=== PATIENT | female | born 1955 | race Caucasian/White ===

== ENCOUNTER → 2019-12-20 13:56 | Outpatient (REF) | payer OTHER, SELFPAY ==
--- NOTE | 2019-12-20 14:00 | HM_ITS ---
TEST PERFORMED: Cardiac event monitoring. REQUESTING PHYSICIAN: Dr. Cruz. INDICATIONS: Palpitations. ENROLLMENT PERIOD: 12/20/2019 to 01/19/2020 - 30 days. FINDINGS: In the above monitoring period of 30 days, the underlying rhythm was sinus. Average heart rate was 61 beats per minute. There were no significant cardiac arrhythmias recorded during these days. CONCLUSION: Overall, unremarkable 30-day event monitoring showing sinus rhythm only without any cardiac arrhythmias. Tashi Jones MD HS/MODBrie / [id number]
== END ==
LOC: HO.CARD 13:56
PROVIDERS: PCP Internal Medicine; Visit Provider Internal Medicine Cardiovascular Disease
DX: R00.2 Palpitations (principal)
CPT/HCPCS: 93270

== ENCOUNTER 2020-11-07 11:34 | Outpatient (REF) | payer OTHER, SELFPAY ==
--- NOTE | ~2020-11-07 | MM_ITS ---
EXAMINATION: MM SCREENING DIGITAL BREAST TOMOSYNTHESIS, BILATERAL CLINICAL INFORMATION: Screening. Asymptomatic. The lifetime risk of breast cancer based on the Tyrer-Cuzick Model is 4%. COMPARISON: Mammography: 09/15/2019, 09/09/2018, 09/04/2017 TECHNIQUE: Digital breast tomosynthesis is performed in both the craniocaudal and mediolateral oblique views along with computer-aided detection (CAD). Synthesized 2D images are generated from the tomosynthesis. FINDINGS: There are scattered areas of fibroglandular density (ACR BI-RADS breast composition Category b). There is fibronodular parenchymal pattern with scattered small waxing and waning smooth nodularity as noted previously. There is no architectural abnormality or interval suspicious changes. Again, there are scattered bilateral punctate round calcifications in either breast. The axilla and skin contours are unremarkable. MM/MM tomosynthesis screening BI IMPRESSION: No significant changes from prior studies. ASSESSMENT: BI-RADS 2: Benign RECOMMENDATION: Routine annual mammography screening. This patient's information was entered into a reminder system with a target due date for their next mammogram.
== END 2020-11-07 11:35 | disposition home or self-care (01) ==
LOC: HO.MAMMO 11:34
PROVIDERS: PCP Internal Medicine; Visit Provider Internal Medicine
DX: Z12.31 Encounter for screening mammogram for malignant neoplasm of breast (principal)
CPT/HCPCS: 77063; 77067

== ENCOUNTER 2020-11-23 07:46 | Outpatient (REF) | payer OTHER, SELFPAY ==
--- NOTE | ~2020-11-23 | US_ITS ---
EXAMINATION: US ABDOMEN COMPLETE CLINICAL INFORMATION: Right upper quadrant pain. COMPARISON: CT abdomen and pelvis 10/16/2019. Ultrasound abdomen 08/01/2010. TECHNIQUE: Real-time imaging of the abdominal viscera. FINDINGS: PANCREAS: Not well visualized due to bowel gas ABDOMINAL AORTA: The proximal, mid, and distal segments are normal in caliber. INFERIOR VENA CAVA: Visualized portions are normal. LIVER: Liver echotexture is increased probably representing fatty infiltration. There are hypoechoic areas adjacent to the gallbladder, a characteristic location of focal fatty sparing. No other focal liver lesion is seen. There is no biliary duct dilatation. GALLBLADDER: The gallbladder is physiologically distended without evidence of stones, sludge, polyps, wall thickening or pericholecystic fluid. COMMON BILE DUCT: Normal in caliber measuring 0.5 cm in diameter. RIGHT KIDNEY: Normal. No hydronephrosis. No renal calculi or focal parenchymal lesions. The kidney measures 9.7 cm in maximum dimension. LEFT KIDNEY: Normal. No hydronephrosis. No renal calculi or focal parenchymal lesions. The kidney measures 10.6 cm in maximum dimension. SPLEEN: Normal. The spleen measures 10.7 cm in maximum dimension. FREE FLUID: None. US/US abdomen complete IMPRESSION: Echogenic liver suggestive of fatty infiltration. Normal-appearing gallbladder. Nonvisualization of the pancreas.
== END 2020-11-23 07:47 | disposition home or self-care (01) ==
LOC: HO.US 07:46
PROVIDERS: PCP Internal Medicine; Visit Provider Internal Medicine
DX: R10.11 Right upper quadrant pain (principal)
CPT/HCPCS: 76700

== ENCOUNTER 2021-03-27 10:44 | Outpatient (REF) | payer OTHER, SELFPAY ==
[2021-03-27 13:17] LABS: Binax Now Covid-19 Ag Negative (Negative)
[2021-03-27 13:18] LABS: Binax Internal Control QC Valid
== END 2021-03-27 10:45 | disposition home or self-care (01) ==
LOC: HO.LAB 10:44
PROVIDERS: Visit Provider Internal Medicine
DX: Z20.822 Contact with and (suspected) exposure to COVID-19 (principal)
CPT/HCPCS: C9803

== ENCOUNTER 2021-05-15 06:43 | Outpatient (REF) | payer OTHER, SELFPAY ==
[2021-05-15 07:55] LABS: Alanine Aminotransferase 20 U/L (0-31); Albumin Level 4.2 g/dL (3.5-5.0); Alkaline Phosphatase 91 U/L (39-117); Anion Gap 13 (12-20); Aspartate Amino Transferase 19 U/L (5-31); Bilirubin Direct 0.2 mg/dL (0.0-0.5); Bilirubin Total 0.3 mg/dL (0.0-1.0); Blood Urea Nitrogen 21 mg/dL (9-16); Calcium 9.4 mg/dL (8.4-10.2); Carbon Dioxide 27 mmol/L (22-29); Chloride 106 mmol/L (96-108); Cholesterol 197 mg/dL; Estimated Glomerular Filt Rate 59; Glucose Random 94 mg/dL (60-115); HDL Cholesterol 48 mg/dL; LDL Cholesterol Calculated 118 mg/dl; Potassium 4.2 mmol/L (3.3-5.1); Sodium 142 mmol/L (135-145); Total Protein 7.6 g/dL (6.5-8.0); Triglycerides 157 mg/dL
== END 2021-05-15 06:44 | disposition home or self-care (01) ==
LOC: HO.LAB 06:43
PROVIDERS: Absent Provider Internal Medicine; PCP Internal Medicine; Visit Provider Student in an Organized Health Care Education/Training Program
DX: I10 Essential (primary) hypertension (principal); R73.01 Impaired fasting glucose
CPT/HCPCS: 36415; 80048; 80061; 80076

== ENCOUNTER 2021-06-13 07:12 | Outpatient (REF) | payer OTHER, SELFPAY ==
[2021-06-13 08:28] LABS: Estimated Average Glucose 128 mg/dL; Hemoglobin A1C 157.4021 umol/L; Hemoglobin A1c % 6.1 %
[2021-06-13 08:36] LABS: Anion Gap 12 (12-20); Blood Urea Nitrogen 13 mg/dL (9-16); Calcium 9.7 mg/dL (8.4-10.2); Carbon Dioxide 29 mmol/L (22-29); Chloride 105 mmol/L (96-108); Estimated Glomerular Filt Rate 56; Glucose Random 103 mg/dL (60-115); Potassium 4.3 mmol/L (3.3-5.1); Sodium 142 mmol/L (135-145)
== END 2021-06-13 07:13 | disposition home or self-care (01) ==
LOC: HO.LAB 07:12
PROVIDERS: PCP Internal Medicine; Visit Provider Internal Medicine
DX: I10 Essential (primary) hypertension (principal); R73.01 Impaired fasting glucose
CPT/HCPCS: 36415; 80048; 83036

== ENCOUNTER 2021-11-09 10:23 | Outpatient (REF) | payer OTHER, SELFPAY ==
--- NOTE | ~2021-11-09 | MM_ITS ---
EXAMINATION: MM SCREENING DIGITAL BREAST TOMOSYNTHESIS, BILATERAL CLINICAL INFORMATION: Screening. Asymptomatic. The lifetime risk of breast cancer based on the Tyrer-Cuzick Model is 4%. COMPARISON: Mammography: 11/07/2020, 09/15/2019, 09/09/2018 TECHNIQUE: Digital breast tomosynthesis is performed in both the craniocaudal and mediolateral oblique views along with computer-aided detection (CAD). Synthesized 2D images are generated from the tomosynthesis. FINDINGS: There are scattered areas of fibroglandular density (ACR BI-RADS breast composition Category b). Parenchymal pattern is similar to prior studies and there is no developing density or interval mass or architectural abnormality. Again, numerous scattered bilateral punctate round calcified breast in both breasts. The axilla and skin contours are unremarkable. There are no significant changes. MM/MM tomosynthesis screening BI IMPRESSION: No mammographic evidence of malignancy. ASSESSMENT: BI-RADS 2: Benign RECOMMENDATION: Routine annual mammography screening. This patient's information was entered into a reminder system with a target due date for their next mammogram.
== END 2021-11-09 10:24 | disposition home or self-care (01) ==
LOC: HO.MAMMO 10:23
PROVIDERS: PCP Internal Medicine; Visit Provider Internal Medicine
DX: Z12.31 Encounter for screening mammogram for malignant neoplasm of breast (principal)
CPT/HCPCS: 77063; 77067

== ENCOUNTER → 2022-05-29 13:40 | Outpatient (BNVA) | payer OTHER, SELFPAY | PROVIDERS: PCP Internal Medicine; Visit Provider Internal Medicine | DX: Z12.11 Encounter for screening for malignant neoplasm of colon (principal); Z12.12 Encounter for screening for malignant neoplasm of rectum | CPT/HCPCS: 99202 ==

== ENCOUNTER 2022-08-01 06:36 | Day surgery (SDC) | payer OTHER, SELFPAY ==
--- NOTE | 2022-07-31 09:51 | HO.ANESPROP2 ---
Documented by User: Pauline Kamara NP 07/31/22 09:51 HPI - Anesthesia Eval Consult details Narrative: 66yo F for Colonoscopy PMFSH Active Problems Active Problems: All Active Problems (Updated 07/30/22 @ 10:14 by Mindy Calderon RN) Encounter for colorectal cancer screening (Acute) Past Medical History Medical History (Updated 07/30/22 @ 10:14 by Mindy Calderon RN) GERD (gastroesophageal reflux disease) Family History Family History Father No problems noted. Mother No problems noted. Surgical History Surgical History (Updated 07/30/22 @ 10:11 by Mindy Calderon RN) History of esophagogastroduodenoscopy (EGD) History of tubal ligation Hx of colonoscopy Hx of excision of mass Social History Social History Patient Tobacco Use Status: Never used Tobacco Use of substances other than those prescribed or required for medical reasons: No Advance Directives: No Advance Directives Information Provided: Yes Meds Allergies Allergy/AdvReac Type Severity Reaction Status Date / Time Sulfa (Sulfonamide Allergy Severe THROAT Unverified 07/30/22 10:12 Antibiotics) CLOSES [SULFA(SULFONAMIDE ANTIBIOTICS)] vancomycin [VANCOMYCIN] Allergy Severe FLUSH, Unverified 05/29/22 13:51 REDNESS, ITCHING Home Medications Medication Instructions Recorded Confirmed Last Taken Type famotidine 20 mg tablet 20 mg PO DAILY 05/29/22 07/30/22 Unknown History Exam Exam Date and Time: July 31, 2022 0951 Assessment and Plan Assessment Anesthesia Assessment: Chart Reviewed Documented by User: Carmelo Asif MD 08/01/22 08:28 PMFSH Past Medical History Medical History (Updated 07/30/22 @ 10:14 by Mindy Calderon RN) GERD (gastroesophageal reflux disease) Family History Family History Father No problems noted. Mother No problems noted. Family history of problems with anesthesia: No Surgical History Surgical History (Updated 07/30/22 @ 10:11 by Mindy Calderon RN) History of esophagogastroduodenoscopy (EGD) History of tubal ligation Hx of colonoscopy Hx of excision of mass History of Problems with Anesthesia: No Social History Social History Patient Tobacco Use Status: Never used Tobacco Use of substances other than those prescribed or required for medical reasons: No Advance Directives: No Advance Directives Information Provided: Yes Meds Allergies Allergy/AdvReac Type Severity Reaction Status Date / Time Sulfa (Sulfonamide Allergy Severe THROAT Unverified 07/30/22 10:12 Antibiotics) CLOSES [SULFA(SULFONAMIDE ANTIBIOTICS)] vancomycin [VANCOMYCIN] Allergy Severe FLUSH, Unverified 05/29/22 13:51 REDNESS, ITCHING Home Medications Medication Instructions Recorded Confirmed Last Taken Type famotidine 20 mg tablet 20 mg PO DAILY 05/29/22 07/30/22 Unknown History Exam Airway Mallampati Class: II TM Dist: <=3cm Partial: Upper and Lower Loose/Missing/Broken Teeth: Yes Heart: ok Lungs: ok Assessment and Plan Assessment Anesthesia Assessment: Anesthesia Plan Discussed Final Anesthetic Review Family History of Problems with Anesthesia: No History of Problems with Anesthesia: No NPO: Yes ASA Class: II Final Preanesthetic Review: No Changes in Pt Med Stat, Meds/Allgs Chart Reviewed, Consent Obtained/Reviewed and Anes Risks/Benef Reviewed Patient Risk: Low Procedure Risk: Low Anesthetic Plan Anesthetic Plan: MAC: and Agree w/ Assess. and Plan Disposition: Standard PACU
[2022-08-01 07:11] VITALS: BP 135/58; PULSE 60; RESP 16; TEMP 36.2; O2SAT 98; BMI 28.3
--- NOTE | 2022-08-01 08:20 | MHC.SHP ---
Pre-Procedural Eval Section A Date of Service: 08/01/22 The patient is an INPATIENT: No The History & Physical has been completed within 30 days and I have reviewed it.: No Section B Chief Complaint: Screening Relevant Family History (Specify if Yes): No Present Medications: see Short Stay Collaborative assessment Medical History: Significant History (GERD) History of Previous Operations: Relevant previous surgery/procedure and date(s) (History of tubal ligation Hx of colonoscopy, hx of EGD) Allergies: Allergies Allergy/AdvReac Type Severity Reaction Status Date / Time Sulfa (Sulfonamide Allergy Severe THROAT Unverified 07/30/22 10:12 Antibiotics) CLOSES [SULFA(SULFONAMIDE ANTIBIOTICS)] vancomycin [VANCOMYCIN] Allergy Severe FLUSH, Unverified 05/29/22 13:51 REDNESS, ITCHING Review of Systems Sugical H&P ROS: Negative: Constitution, Cardiovascular, Respiratory and Gastrointestinal Exam Surgical H&P Exam: Normal: Heart, Normal: Lungs, Normal: Extremities and Normal: Abdomen Plan Diagnosis/Plan: Unchanged I have reviewed the history and physical and performed a pertinent physical examination on my patient. No changes have occurred unless specified. Time Spent With Patient Time: Total time managing care of this patient today ____ minutes.
--- NOTE | 2022-08-01 08:30 | W.PM.OPN ---
Operative Note Operative Note Date of Service: 08/01/22 Narrative: COLONOSCOPY TILL CECUM WITH SUBMUCOSAL INJECTION AND SNARE POLYPECTOMY Pre-op diagnosis: Colon cancer screening Post-op diagnosis:? Colon polyp, diverticulosis Endoscopist:? Trinity Dowling MD Anesthesia:?MAC Consent: Indications for the procedure and potential complications of bleeding, perforation, reaction to medications and missed diagnosis were discussed with the patient and informed consent was obtained. Instrument: Olympus PCF H 190 L variable stiffness pediatric colonoscope Monitoring: Vital signs and clinical assessment, intermittent blood pressure monitoring, continuous EKG monitoring, Pulse oximetry and Carbon Dioxide monitoring were done throughout the procedure. Please see anesthesia flowsheet. Colon withdrawl time was 23 minutes. Procedure: The patient was placed in the left lateral decubitis position and pre-procedure medications were administered. After a digital rectal examination of the ano-rectum, the video colonoscope was inserted into the rectum and advanced through the colon to the cecum. The colonoscope was slowly withdrawn in a retrograde panoramic fashion and the colon mucosa was carefully examined including a retroflexed view of the rectum. Findings and interventions are described below. Procedure Difficulty: Without difficulty Findings: Terminal Ileum: Not evaluated Cecum: Normal Ascending Colon: A 12 - 15 mm sessile polyp in the proximal AC. Polyp was raised with 2 cc of [place] and removed with a hot snare. Scattered moderate diverticulosis throughout the colon. Transverse Colon: Scattered moderate diverticulosis throughout the colon. Descending Colon: Scattered moderate diverticulosis throughout the colon. Sigmoid Colon: Scattered moderate diverticulosis throughout the colon. Rectum: Normal Ano-rectum: Perianal skin tags Colon preparation: Good after some irrigation Impression and Post Procedure Diagnosis: Colonoscopy Findings: One medium sized polyp removed Moderate diverticulosis seen in the entire colon Plan: Await pathology results Patient has an appointment on 08/14/22 in the [facility] with Dr Riojas. Repeat Colonoscopy interval based on path results - in 3 years if polyp is adenomatous and 10 years if polyps are hyperplastic. Above findings were reviewed with the patient and colon polyps and diverticulosis handouts were given in the discharge area
[2022-08-01 09:10] VITALS: BP 94/42; PULSE 60; RESP 16; TEMP 36.4; O2SAT 93
[2022-08-01 09:25] VITALS: BP 105/49; PULSE 54; RESP 16; TEMP 36.4; O2SAT 96
== END 2022-08-01 09:45 | disposition home or self-care (01) ==
PROVIDERS: PCP Internal Medicine; Visit Provider Internal Medicine Gastroenterology
PROC: 0DJD8ZZ Inspection of Lower Intestinal Tract, Via Natural or Artificial Opening Endoscopic (ICD-10-PCS; CPT 45378; principal; 2022-08-01 08:50)
DX: Z12.11 Encounter for screening for malignant neoplasm of colon (principal); D12.2 Benign neoplasm of ascending colon; K57.30 Diverticulosis of large intestine without perforation or abscess without bleeding; K64.4 Residual hemorrhoidal skin tags; K21.9 Gastro-esophageal reflux disease without esophagitis; Z79.899 Other long term (current) drug therapy; Z88.1 Allergy status to other antibiotic agents; Z88.2 Allergy status to sulfonamides
CPT/HCPCS: 45385; 45381; 88305; J3010

== ENCOUNTER → 2022-08-14 13:23 | Outpatient (BNVA) | payer OTHER, SELFPAY | PROVIDERS: PCP Internal Medicine; Visit Provider Internal Medicine | DX: D12.2 Benign neoplasm of ascending colon (principal); K57.30 Diverticulosis of large intestine without perforation or abscess without bleeding; Z98.890 Other specified postprocedural states | CPT/HCPCS: 99212 ==

== ENCOUNTER 2022-10-16 10:54 | Outpatient (REF) | payer MEDICARE, MEDICAID, SELFPAY ==
[2022-10-16 14:18] LABS: Vitamin D 25-OH Total 32.7 ng/mL (>30)
== END 2022-10-16 10:55 | disposition home or self-care (01) ==
LOC: HO.HHCL 10:54
PROVIDERS: Visit Provider Internal Medicine
DX: R53.83 Other fatigue (principal); R73.01 Impaired fasting glucose; D64.9 Anemia, unspecified
CPT/HCPCS: 36415; 82306

== ENCOUNTER 2022-12-02 09:27 | Emergency (ER) | payer MEDICARE, MEDICAID, SELFPAY ==
--- NOTE | ~2022-12-02 | CT_ITS ---
EXAMINATION: CT ABDOMEN AND PELVIS WITHOUT CONTRAST CLINICAL INFORMATION: Left lower quadrant pain. COMPARISON: Abdominal ultrasound 11/23/2020 CT abdomen/pelvis 10/16/2019 TECHNIQUE: Multidetector volumetric imaging was performed from the superior aspect of the liver through the pubic symphysis. Sagittal and coronal reformatted images were obtained on the technologist's workstation. This CT examination was performed using dose optimization techniques as appropriate, variously including the following: *Automated exposure control *Adjustment of mA and/or kV according to patient size (this includes techniques or standardized protocols for targeted exams where dose is matched to indication/reason for exam; i.e. extremities or head) *Use of iterative reconstruction technique DLP: 451 mGy-cm FINDINGS: LUNG BASES: No pleural or pericardial effusion. LIVER, GALLBLADDER, AND BILIARY TREE: The noncontrast liver is decreased in attenuation. No biliary ductal dilatation is present. The gallbladder is unremarkable with no evidence of radiopaque gallstones, gallbladder wall thickening, or obvious pericholecystic inflammatory changes. PANCREAS: Unremarkable. SPLEEN: Unremarkable. ADRENAL GLANDS: Unremarkable. KIDNEYS AND URETERS: The kidneys are normal in size, shape, and attenuation. 3 mm nonobstructing calculus lower pole left kidney. No hydronephrosis or perinephric stranding. BLADDER: Unremarkable. GASTROINTESTINAL TRACT: There is diverticular disease of the colon. There is pericolonic inflammatory change in the left lower quadrant surrounding an inflamed diverticulum of the descending colon. No small bowel obstruction. Appendix is within normal limits. ABDOMINAL WALL: No significant hernia is appreciated. LYMPH NODES: No bulky abdominal or pelvic lymphadenopathy. VASCULAR: Normal caliber abdominal aorta. PELVIC VISCERA: The uterus and adnexa are unremarkable. OSSEOUS STRUCTURES: No destructive bone lesions. CT/CT abdomen pelvis wo IV con IMPRESSION: Acute diverticulitis of the descending colon. Hepatic steatosis. 3 mm nonobstructing left renal calculus. No hydronephrosis.
[2022-12-02 09:37] VITALS: BP 154/49; PULSE 70; RESP 20; TEMP 36.3; O2SAT 96
[2022-12-02 10:28] LABS: MANUAL DIFF FLAG NO
[2022-12-02 10:31] LABS: Basophils Percent Auto 0.5 % (0-2); Eosinophils Absolute Auto 0.1 X10*3/uL (0.0-0.4); Eosinophils Percent Auto 1.2 % (0-4); Hematocrit 40.9 % (37.0-47.0); Hemoglobin 13.6 g/dl (12.0-16.0); Imm Gran Abs Auto 0.02 X10*3/uL (0.00-0.03); Imm Gran Pct Auto 0.3 % (0.0-0.4); Lymphocytes Absolute Auto 1.2 X10*3/uL (1.2-4.9); Lymphocytes Percent Auto 19.6 % (20-40); Mean Corpuscular HGB Conc 33.3 g/dl (31.0-35.0); Mean Corpuscular Hemoglobin 28.8 pg (27.0-33.0); Mean Corpuscular Volume 86.5 fL (80.0-98.0); Monocytes Absolute Auto 0.5 X10*3/uL (0.1-1.2); Monocytes Percent Auto 7.8 % (2-11); Neutrophils Absolute Auto 4.2 x10*3/uL (2.0-8.3); Neutrophils Percent Auto 70.6 % (45-73); Platelet Count 190 X10*3/uL (160-400); Red Blood Count 4.73 X10*6/uL (4.20-5.50); Red Cell Distribution Width 12.9 % (11.0-16.0); White Blood Count 5.9 X10*3/uL (4.8-10.8)
[2022-12-02 10:35] LABS: Appearance Urine Clear; Color Urine Yellow; Glucose Urine UA Negative (Negative); Leukocyte Esterase Urine Negative (Negative); Nitrite Urine Negative (Negative); PH 5.5 (5.0-9.0); Urine Blood Negative (Negative); Urine Ketones Negative (Negative); Urine Protein Negative (Neg-Trace)
[2022-12-02 10:44] LABS: Alanine Aminotransferase 12 U/L (0-31); Albumin Level 4.2 g/dL (3.5-5.0); Alkaline Phosphatase 97 U/L (39-117); Anion Gap 10 (12-20); Aspartate Amino Transferase 16 U/L (5-31); Bilirubin Direct < 0.2 mg/dL (0.0-0.5); Bilirubin Total 0.2 mg/dL (0.0-1.0); Blood Urea Nitrogen 14 mg/dL (9-16); Calcium 9.7 mg/dL (8.4-10.2); Carbon Dioxide 27 mmol/L (22-29); Chloride 108 mmol/L (96-108); Creatinine Clr Calc Pharmacy 49.1; Estimated Glomerular Filt Rate 57; Glucose Random 104 mg/dL (60-115); Lipase 26 U/L (8-78); Potassium 4.6 mmol/L (3.3-5.1); Sodium 140 mmol/L (135-145)
--- NOTE | 2022-12-02 12:11 | ED_ITS ---
HPI - Abdominal Pain General Chief Complaint: Abdominal Pain Stated Complaint: Lower abd pain Time Seen by Provider: 12/02/22 12:36 Source: patient, RN notes reviewed and old records reviewed Mode of arrival: ambulatory History of Present Illness HPI narrative: 67yo F w/ PMHx diverticulitis c/o LLQ abdominal pain radiating to RLQ x few days. Admits pain became more constant last night. denies fever, chills, N/V/D/C, hematuria, dysuria, flank pain MD elicited complaint: abdominal pain Related Data Home Medications Medication Instructions Recorded Confirmed famotidine 20 mg tablet 20 mg PO DAILY 05/29/22 07/30/22 Previous Rx's Medication Instructions Recorded amoxicillin 875 mg-potassium 1 tab PO Q8H 7 days #21 tabs 12/02/22 clavulanate 125 mg tablet ketorolac 10 mg tablet 10 mg PO TID PRN pain 5 days #15 12/02/22 tabs morphine 15 mg immediate release 15 mg PO Q8H PRN pain, severe 3 12/02/22 tablet days #9 tabs Allergies Allergy/AdvReac Type Severity Reaction Status Date / Time Sulfa (Sulfonamide Allergy Severe THROAT Verified 12/02/22 09:45 Antibiotics) CLOSES [SULFA(SULFONAMIDE ANTIBIOTICS)] vancomycin [VANCOMYCIN] Allergy Severe FLUSH, Verified 12/02/22 09:45 REDNESS, ITCHING Review of Systems Review of Systems Constitutional: No Fever, No Chills ENT/Mouth: No Ear Pain, No Nasal Congestion, No Sinus Pain, No Hoarseness, No sore throat, No Rhinorrhea, No Swallowing Difficulty Cardiovascular: No Chest Pain, No SOB Respiratory: No Cough, No Sputum, No Wheezing Gastrointestinal: No Nausea, No Vomiting, No Diarrhea, No Constipation, + Abdominal pain Genitourinary: No Dysuria, No Urinary Frequency, No Hematuria, No Flank Pain Musculoskeletal: No joint pain, No Myalgias, No Joint Swelling Skin: No Skin Lesions, No rash Neuro: No Weakness Yes all other systems are reviewed and are negative Constitutional: Reports as per [facility] Past Medical History Attestation statement: The following information was validated with the patient. Source: old records reviewed Medical History GERD (gastroesophageal reflux disease) Surgical History Hx of excision of mass History of esophagogastroduodenoscopy (EGD) Hx of colonoscopy History of tubal ligation Family History Family History Father No problems noted. Mother No problems noted. Social History Social History Alcohol intake: never Patient Tobacco Use Status: Never used Tobacco Smoked in Last 30 Days: No Use of substances other than those prescribed or required for medical reasons: No Advance Directives: No Advance Directives Information Provided: Yes Physical Exam ED Vital Signs: Vital Signs - 24 hr 12/02/22 09:37 12/02/22 12:13 12/02/22 12:31 Temperature 97.4 F 97.6 F Pulse Rate 70 63 70 Respiratory Rate 20 18 18 Blood Pressure 154/49 H 141/55 H 151/58 H Pulse Oximetry 96 98 100 Oxygen Delivery Method Room Air Room Air Room Air 12/02/22 14:22 Temperature Pulse Rate 61 Respiratory Rate 20 Blood Pressure 109/46 L Pulse Oximetry 98 Oxygen Delivery Method Room Air BMI result Body Mass Index 30.0 Const General: cooperative, healthy appearing and no acute distress Orientation/consciousness: patient oriented x3 Limitations: no limitations HENMT Head: Yes normal to inspection and Yes atraumatic Ears: hearing grossly normal bilaterally General nose exam: Normal external nose present Face and sinus: Yes normal facial exam Eyes General: appearance normal, both eyes and all related structures EOM: EOMs intact bilaterally Neck Neck: Yes normal visual inspection and Yes no meningeal signs Resp Effort & Inspection: normal respiratory effort and no respiratory distress Auscultation: clear to auscultation bilaterally Cardio Rate: regular rate Heart sounds: S1 normal heart sound present and S2 normal heart sound present GI Inspection: Yes normal to inspection Palpation (GI): Soft to palpation, Tenderness to palpation present (GI) (lower abdomen) in the LLQ; with no rebound tenderness, no guarding and not rigid General: Yes no CVA tenderness Back/Spine/Pelvis Back: no CVA tenderness Skin Rashes: no rashes Wounds: no wounds Neuro General: patient oriented x3, tone normal and no meningeal signs Cranial nerves: Yes CN's II-XII intact bilaterally Gait exam (Neuro): Normal gait present Extrem General: Yes normal to inspection Course Course Course Narrative: RME - 67 yo female with history of diverticulitis presents to the ER for evaluation of LLQ pain that started last night. No N/V/D. Labs ok. LLQ tenderness on exam Plan: CT scan abd/pelvis - labs and UA unremarkable CT abdomen pelvis wo IV con IMPRESSION: Acute diverticulitis of the descending colon. Hepatic steatosis. 3 mm nonobstructing left renal calculus. No hydronephrosis. > results discussed with patient. Still reports significant pain. Additional IVF and pain medication ordered. Will re-evaluate and p.o. challenge -1540-- on re-evaluation patient reports mild pain, feels safe for discharge home at this time, is tolerating p.o. Results discussed with patient including worrisome signs and symptoms and strict return precautions, and when to return to the emergency department. They verbalized understanding and feel safe for discharge at this time. Medical Decision Making Medical Decision Making [facility] Narrative: 67yo F w/ PMHx diverticulitis c/o LLQ abdominal pain radiating to RLQ x few days. On exam VSS, NAD, abdomen soft w/LLQ/lower abdominal ttp, no rebound or g uarding, no CVAT. concern for diverticulitis vs colitis vs UTI vs ?appy. Low suspicion for renal stone/pyelo/pancreatitis or gallbladder dz Plan: Labs, UA, CTAP, pain control, IVF, reassess Please refer to course for remaining clinical decision making, interpretation of labs/imaging results, and discussions with consultants and/or family members. Differential Diagnosis Differential Diagnoses: The differential diagnosis associated with the presentation includes As above Admission/Observation Consideration of admission/observation: Escalation of care including admission/observation considered Lab Data [facility] Lab Attestation statement: I reviewed the patient's lab results. 12/02/22 10:23 12/02/22 10:23 Labs: Lab Results 12/02/22 12/02/22 Range/Units 10:22 10:23 WBC 5.9 (4.8-10.8) X10*3/uL RBC 4.73 (4.20-5.50) X10*6/uL Hgb 13.6 (12.0-16.0) g/dl Hct 40.9 (37.0-47.0) % MCV 86.5 (80.0-98.0) fL MCH 28.8 (27.0-33.0) pg MCHC 33.3 (31.0-35.0) g/dl RDW 12.9 (11.0-16.0) % Plt Count 190 (160-400) X10*3/uL MPV 10.0 (9.4-12.3) fL Immature Gran % (Auto) 0.3 (0.0-0.4) % Neut % (Auto) 70.6 (45-73) % Lymph % (Auto) 19.6 L (20-40) % [place] % (Auto) 7.8 (2-11) % Eos % (Auto) 1.2 (0-4) % Baso % (Auto) 0.5 (0-2) % Lymph # (Auto) 1.2 (1.2-4.9) X10*3/uL [place] # (Auto) 0.5 (0.1-1.2) X10*3/uL Eos # (Auto) 0.1 (0.0-0.4) X10*3/uL Baso # (Auto) 0.0 (0.0-0.2) X10*3/uL Abs Immat Gran (auto) 0.02 (0.00-0.03) X10*3/uL Absolute Neuts (auto) 4.2 (2.0-8.3) x10*3/uL Absolute Nucleated RBC 0.000 (0.0-0.012) X10*3/uL Nucleated RBC % (auto) 0.0 (0.0-0.2) /100WBC Sodium 140 (135-145) mmol/L Potassium 4.6 (3.3-5.1) mmol/L Chloride 108 (96-108) mmol/L Carbon Dioxide 27 (22-29) mmol/L Anion Gap 10 L (12-20) BUN 14 (9-16) mg/dL Creatinine 0.98 (0.5-1.4) mg/dL Estim Creat Clear Calc 49.1 Estimated GFR 57 Random Glucose 104 (60-115) mg/dL Calcium 9.7 (8.4-10.2) mg/dL Magnesium 2.2 (1.6-2.6) mg/dL Total Bilirubin 0.2 (0.0-1.0) mg/dL Direct Bilirubin < 0.2 (0.0-0.5) mg/dL AST 16 (5-31) U/L ALT 12 (0-31) U/L Alkaline Phosphatase 97 (39-117) U/L Total Protein 8.0 (6.5-8.0) g/dL Albumin 4.2 (3.5-5.0) g/dL Lipase 26 (8-78) U/L Urine Color Yellow Urine Appearance Clear Urine pH 5.5 (5.0-9.0) Ur Specific [place] 1.010 (1.005-1.025) Urine Protein Negative (Neg-Trace) mg/dL Urine Glucose (UA) Negative (Negative) mg/dL Urine Ketones Negative (Negative) mg/dL Urine Blood Negative (Negative) Urine Nitrite Negative (Negative) Ur Leukocyte Esterase Negative (Negative) Radiology Impression Discussion of test interpretation with radiology: I have reviewed the radiologist's reading. Independent Historian Clinical information obtained from an independent historian. History obtained from or confirmed by: Spouse External Record Review External record reviewed: Inpatient record, Office record, Outpatient record, Prior outpatient labs, Prior outpatient radiology, Primary care record and Outside ED record Tests considered The following testing was considered but not selected: As above Prescription Management I considered prescription management with: Pain Medication and Antibiotic Medications Administered Discontinued Medications Generic Name Dose Route Start Last Admin Trade Name Freq PRN Reason Stop Dose Admin Sodium Chloride 1,000 mls @ 999 mls/hr 12/02/22 13:15 12/02/22 14:20 Ns IV 12/02/22 14:15 Infused .Q1H1M SAMIR Infusion Ketorolac Tromethamine 15 mg 12/02/22 13:53 12/02/22 14:20 Ketorolac Tromethamine 15 Mg/Ml Vial IVPUSH 12/02/22 13:54 15 mg ONCE ONE Administration Morphine Sulfate 2 mg 12/02/22 13:02 12/02/22 13:07 Morphine Sulfate 2 Mg/Ml Cartridge IVPUSH 12/02/22 13:03 2 mg ONCE ONE Administration Protocol Morphine Sulfate 2 mg 12/02/22 13:53 12/02/22 14:21 Morphine Sulfate 2 Mg/Ml Cartridge IVPUSH 12/02/22 13:54 2 mg ONCE ONE Administration Protocol Discharge Plan Discharge Clinical Impression: Acute diverticulitis Patient Disposition: Home, Self-Care Instructions: Diverticulitis (ED), Diverticulitis Diet (ED) Additional Instructions: you have diverticulitis. practice clear liquid diet for the next 2 days Augmentin is an antibiotic please take as prescribed Ketorolac as an anti-inflammatory/ pain medication take with food. Do not take both ketorolac, and ibuprofen/ Motrin or Aleve as they are similar medications, choose 1 In addition you may also take Tylenol Morphine is no opiate pain medication, take only when pain is severe for the next 3 days You need to follow-up with her doctor If symptoms persist or worsen you have constant or unremitting pain, fever/chills, persistent nausea/ vomiting please return to the ED Tienes diverticulitis. Practique louie dieta de l?quidos annalisa sandra los pr?ximos 2 d?as. Augmentin es un antibi?ivett, t?hughes seg?n lo recetado. Ketorolac zamazm analg?sico/antiinflamatorio, t?hughes con alimentos. No tome ketorolaco e ibuprofeno/Motrin o Aleve ya que son medicamentos similares, elija 1 Adem?s, tambi?n puedes kwan Tylenol. La morfina no es un analg?sico opi?expanded function dental assistant; t?joann s?lo cuando el dolor sea intenso sandra los pr?ximos 3 d?as. Necesitas hacer un seguimiento con koch m?dico. Si los s?ntomas persisten o empeoran, tiene dolor patsy o incesante, fiebre/escalofr?os, n?useas/v?mitos persistentes, regrese al servicio de urgencias. Prescriptions: New amoxicillin-pot clavulanate 875-125 mg tablet 1 tab PO Q8H 7 Days Qty: 21 0RF morphine 15 mg tablet 15 mg PO Q8H PRN (Reason: pain, severe) 3 Days Qty: 9 0RF Rx Instructions: Partial Fill upon patient request. ketorolac 10 mg tablet 10 mg PO TID PRN (Reason: pain) 5 Days Qty: 15 0RF No Action famotidine 20 mg tablet 20 mg PO DAILY Referrals: Rodrigue Purdy MD [Primary Care Provider] - 5 days Print Language: Filipino
[2022-12-02 12:13] VITALS: BP 141/55; PULSE 63; RESP 18; TEMP 36.4; O2SAT 98
[2022-12-02 12:20] LABS: Magnesium 2.2 mg/dL (1.6-2.6)
[2022-12-02 12:31] VITALS: BP 151/58; PULSE 70; RESP 18; O2SAT 100
--- NOTE | 2022-12-02 12:47 | PC.NURSE ---
garnett fixer at bedside. pt a&ox3. respirations even and unlabored. pt reports left upper abdominal pain for 5 days without relief. pt reports the pain radiates to the right upper quadrant. pt abdomen soft but tender to touch in the left upper quadrant with hypoactive bowel sounds in all 4 quadrants. pt denies nausea, vomiting and chest pain. pt reports normal bowel movements for self.
[2022-12-02] MEDS: Morphine Sulfate 2 MG/ML CARTRIDGE IVPUSH ×2 (13:07→14:21)
[2022-12-02] MEDS: 0.9 % Sodium Chloride 1,000 ML 999 ML IV (13:12)
[2022-12-02] MEDS: Ketorolac Tromethamine 15 MG/ML VIAL IVPUSH (14:20)
[2022-12-02 14:22] VITALS: BP 109/46; PULSE 61; RESP 20; O2SAT 98
== END 2022-12-02 16:38 | disposition home or self-care (01) ==
PROVIDERS: Physician Assistant; Emergency Provider Emergency Medicine; PCP Internal Medicine
DX: K57.32 Diverticulitis of large intestine without perforation or abscess without bleeding (principal); R10.32 Left lower quadrant pain; Z79.899 Other long term (current) drug therapy
CPT/HCPCS: 36415; 74176; 80048; 80076; 81003; 83690; 83735; 85025; 96361; 96374; 96375; 96376; 99284; 99285; J1885; J2270

== ENCOUNTER 2022-12-16 10:28 | Outpatient (AMB) | payer MEDICARE, MEDICAID, SELFPAY ==
[2022-12-16 11:00] VITALS: BMI 30.1
--- NOTE | 2022-12-16 11:00 | A.OFFVIS_ITS ---
Intake VS Expanded 12/16/22 11:00 12/18/22 12:42 Height 5 ft 5 ft Weight 154 lb 1.65 oz 154 lb BMI 30.1 30.1 Intake Visit Reasons: Diverticulosis Allergies Sulfa (Sulfonamide Antibiotics) [SULFA(SULFONAMIDE ANTIBIOTICS)] Allergy (Severe, Verified 12/02/22 09:45) THROAT CLOSES vancomycin [VANCOMYCIN] Allergy (Severe, Verified 12/02/22 09:45) FLUSH, REDNESS, ITCHING HPI Nutrition Presentation Details Pt presents for MNT for diverticulosis. Pt was referred by PCP , Dr. Yamini Barrios from [facility] Pt had acute diverticulitis in 11/2022. Pt reports feeling better , acknowledges needing to work on increasing fiber intake Pt reports she also has elevated cholesterol and wants nutrition ed on low cholesterol concepts Pt reports having soft foods , removing skins from foods . She reports her makes most meals B: corn meal or farina or oatmeal and scrambled , coffee sugar /milk lactose free L: ham/cheese sandwich , juice or lactose free milk D: rice/beans, chicken or mashed potato and chicken , water or juice snack on peanut butter, cake Physical activity:daily life activities ETOH/SMoking denies ECB-Hyqpuwq-Pf.Jeor Equation Height 5 ft Weight 154 lb Resting Metabolic Rate 1164.61 Calculated Activity Level Mild Activity Calories Needed to Maintain Weight 1601.34 Diagnosis Nutrition problem #1 food nutri know defi As related to (etiology) #1 diagnosis As evidenced by (sign/symptom) #1 knowledge deficit of diet Monitoring/Goals Monitoring/Goals details Education regarding prevention of diverticulitis and low cholesterol concepts as per Pt request Nutrition problem monitoring level of knowledge/skill Most Recent Diabetes Results: Cholesterol 197 mg/dL 05/15/21 HDL Cholesterol 48 mg/dL 05/15/21 Triglycerides 157 mg/dL 05/15/21 Creatinine 0.98 mg/dL (0.5-1.4) 12/02/22 Blood Urea Nitrogen 14 mg/dL (9-16) 12/02/22 Sodium 140 mmol/L (135-145) 12/02/22 Potassium 4.6 mmol/L (3.3-5.1) 12/02/22 Chloride 108 mmol/L (96-108) 12/02/22 Carbon Dioxide 27 mmol/L (22-29) 12/02/22 Calcium 9.7 mg/dL (8.4-10.2) 12/02/22 AST 16 U/L (5-31) 12/02/22 ALT 12 U/L (0-31) 12/02/22 Total Protein 8.0 g/dL (6.5-8.0) 12/02/22 Albumin 4.2 g/dL (3.5-5.0) 12/02/22 PFSH Medical History GERD (gastroesophageal reflux disease) Surgical History Hx of excision of mass History of esophagogastroduodenoscopy (EGD) Hx of colonoscopy History of tubal ligation Family History Father No problems noted. Mother No problems noted. Social History Alcohol intake: never Patient Tobacco Use Status: Never used Tobacco Assessment & Plan Assessment & Plan (1) Diverticulosis: Code(s): K57.90 - Diverticulosis of intestine, part unspecified, without perforation or abscess without bleeding Plan: wt: 70 kg Est kcal needs as per MSJ: 1600 (40% carb, 30% protein/fat) Est fluid needs as per 30 ml/d: 2100 Est prot per day as per 1 g/kg bw: 70 Recommend fiber intake : 8-10 g per day and gradually increase to 25-28 g per day for women and 35-38 g for men or as tolerated Recommend sodium intake per day : less than 2000 mg Educated patient on: ( R = reviewed V = verbalizes understanding N/R = needs review N/A = not applicable * * Differences between complex carbohydrates a simple carbohydrates, role of fiber in diet: R , gradually increase on fiber sources of foods * Importance of hydration as fiber intake increases: R * Differences between types of fats and role in diet (mono on saturated fat fatty acids, saturated fatty acids, trans fats): R * Healthy plate method concept: R * Physical activity: Benefits a precaution: R Patient Instructions: see low chol, fiber rich 1500 ben meal plan Gradually increase fiber by 3-5 g (choose whole grains, cooked vegetables, lentils, puree) choose low fat food options (less fried foods, highly processed foods) keep hydrated by drinking water/broth/decaf tea with meals and with snacks as you increase on fiber Coding Level of Care Code Nutr Indiv Intake (90026) Diagnoses Diverticulosis K57.90 Time Spent (min) 30
[2022-12-18 12:42] VITALS: BMI 30.1
== END 2022-12-16 11:43 | disposition home or self-care (01) ==
PROVIDERS: PCP Internal Medicine; Visit Provider Dietitian, Registered
DX: K57.90 Diverticulosis of intestine, part unspecified, without perforation or abscess without bleeding (principal)

== ENCOUNTER → 2022-12-16 10:28 | Outpatient (BNVA) | payer OTHER, MEDICAID, SELFPAY | PROVIDERS: PCP Internal Medicine; Visit Provider Dietitian, Registered | DX: K57.90 Diverticulosis of intestine, part unspecified, without perforation or abscess without bleeding (principal); Z71.3 Dietary counseling and surveillance | CPT/HCPCS: 97802 ==

== ENCOUNTER 2022-12-18 12:53 | Outpatient (REF) | payer OTHER, SELFPAY | END 2022-12-18 12:54 | disposition home or self-care (01) | LOC: HO.MAMMO 12:53 | PROVIDERS: PCP Internal Medicine; Visit Provider Internal Medicine | DX: Z12.31 Encounter for screening mammogram for malignant neoplasm of breast (principal) | CPT/HCPCS: 77063; 77067 ==

== ENCOUNTER → 2022-12-18 13:30 | Outpatient (BNV) | payer OTHER, SELFPAY | PROVIDERS: PCP Internal Medicine; Visit Provider Radiology Diagnostic Radiology | DX: Z12.31 Encounter for screening mammogram for malignant neoplasm of breast (principal) | CPT/HCPCS: 77063; 77067 ==

== ENCOUNTER 2022-12-31 19:10 | Outpatient (REF) | payer OTHER, SELFPAY ==
[2023-01-04 00:58] LABS: HPV 16 RNA NOT DETECTED (NOT DETECTED); HPV mRNA E6/E7 rflx Detected (Not Detected)
== END 2022-12-31 19:11 | disposition home or self-care (01) ==
LOC: HO.CHCLNP 19:10
PROVIDERS: Visit Provider Advanced Practice Midwife
DX: Z12.4 Encounter for screening for malignant neoplasm of cervix (principal); Z11.51 Encounter for screening for human papillomavirus (HPV)
CPT/HCPCS: 87624; 87625; 88142

== ENCOUNTER 2023-01-21 13:05 | Outpatient (REF) | payer OTHER, SELFPAY ==
--- NOTE | ~2023-01-21 | MM_ITS ---
EXAMINATION: BONE DENSITOMETRY CLINICAL INDICATION: Unspecified menopausal disorder. COMPARISON: This is the patient's baseline examination. TECHNIQUE: Using a [employer] DXA System (software version: 13.1) manufactured by [employer], dual-energy x-ray absorptiometry was performed of the lumbar spine and left hip. The images are of good technical quality. Summary results are attached. FINDINGS: LEFT FEMUR, NECK: BMD 1.095 g/cm2, Z-score 1.9, T-score 0.4, normal. LEFT FEMUR, TOTAL: BMD 1.176 g/cm2, Z-score 2.5, T-score 1.3, normal. AP SPINE L1-L4: BMD 1.267 g/cm2, Z-score 2.2, T-score 0.7, normal. IDENTIFIED RISK FACTORS: Early menopause, secondary osteoporosis. HISTORY OF FRACTURE: None listed. MEDICATIONS: None listed. MM/XR DEXA axial skeleton IMPRESSION: 1. DIAGNOSIS: Normal bone density based on the lowest T-score value of 0.4 in the femoral neck applying World Health Organization criteria. 2. 10-YEAR FRACTURE RISK PREDICTION, FRAX: According to the guidelines, FRAX calculation should only be performed on patients in the osteopenia bone density category. Therefore, FRAX was not performed on this patient. 3. Treatment Recommendations: NOF guidelines recommend consideration for treatment in postmenopausal women and men age 50 and older presenting with the following: -A hip or vertebral (clinical or morphometric) fracture. -T-score less than or equal to -2.5 at the femoral neck or spine after appropriate evaluation to exclude secondary causes. -Low bone mass at the hip or spine and a 10-year fracture probability by FRAX of greater than or equal to 3% for hip fracture or greater than or equal to 20% for major osteoporotic fracture based on the [place] adapted WHO algorithm. 4. Other Recommendations: All treatment decisions require clinical judgment and consideration of individual patient factors, including patient preferences, comorbidities, previous drug use, risk factors not captured in the FRAX model (e.g. frailty, falls, vitamin D deficiency, increased bone turnover, interval significant decline in bone density) and possible under or overestimation of fracture risk by FRAX. FUTURE SCAN RECOMMENDATION: People with diagnosed cases of osteoporosis or at high risk for fracture should have regular bone mineral density tests. For patients eligible for Medicare, routine testing is allowed once every 2 years. The testing frequency can be increased to one year for patients who have rapidly progressing disease, those who are receiving or discontinuing medical therapy to restore bone mass, or have additional risk factors.
== END 2023-01-21 13:06 | disposition home or self-care (01) ==
LOC: HO.MAMMO 13:05
PROVIDERS: PCP Internal Medicine; Visit Provider Advanced Practice Midwife
DX: Z13.820 Encounter for screening for osteoporosis (principal); Z78.0 Asymptomatic menopausal state
CPT/HCPCS: 77080

== ENCOUNTER 2023-02-03 10:38 | Outpatient (AMB) | payer MEDICARE, MEDICAID, SELFPAY ==
--- NOTE | 2023-02-03 10:55 | A.OFFVIS_ITS ---
Intake Intake Visit Reasons: diverticulitis/predm Allergies Sulfa (Sulfonamide Antibiotics) [SULFA(SULFONAMIDE ANTIBIOTICS)] Allergy (Severe, Verified 12/02/22 09:45) THROAT CLOSES vancomycin [VANCOMYCIN] Allergy (Severe, Verified 12/02/22 09:45) FLUSH, REDNESS, ITCHING HPI Nutrition Presentation Details Pt presents for MNT follow for T2DM and hx of diverticulitis Pt reports doing well, reports feeling comfortable in gradually increasing fiber (fruits and vegetables in smoothies) Food frequency Dairy: yogurt daily 1/d fruits:daily (apple, pure ,S[place], smoothies , papaya veg: carrots/spinach /watercress fish: 1-2 x/wk Reports FBG ranges from 130-150 Most Recent Diabetes Results: Creatinine 0.98 mg/dL (0.5-1.4) 12/02/22 Blood Urea Nitrogen 14 mg/dL (9-16) 12/02/22 Sodium 140 mmol/L (135-145) 12/02/22 Potassium 4.6 mmol/L (3.3-5.1) 12/02/22 Chloride 108 mmol/L (96-108) 12/02/22 Carbon Dioxide 27 mmol/L (22-29) 12/02/22 Calcium 9.7 mg/dL (8.4-10.2) 12/02/22 AST 16 U/L (5-31) 12/02/22 ALT 12 U/L (0-31) 12/02/22 Total Protein 8.0 g/dL (6.5-8.0) 12/02/22 Albumin 4.2 g/dL (3.5-5.0) 12/02/22 [facility] Medical History GERD (gastroesophageal reflux disease) Surgical History Hx of excision of mass History of esophagogastroduodenoscopy (EGD) Hx of colonoscopy History of tubal ligation Family History Father No problems noted. Mother No problems noted. Alcohol intake: never Patient Tobacco Use Status: Never used Tobacco Assessment & Plan Assessment & Plan (1) Diverticulosis: Code(s): K57.90 - Diverticulosis of intestine, part unspecified, without perforation or abscess without bleeding Plan: wt: 70 kg Est kcal needs as per MSJ: 1600 (40% carb, 30% protein/fat) Est fluid needs as per 30 ml/d: 2100 Est prot per day as per 1 g/kg bw: 70 Recommend fiber intake : 8-10 g per day and gradually increase to 25-28 g per day for women and 35-38 g for men or as tolerated Recommend sodium intake per day : less than 2000 mg Educated patient on: ( R = reviewed V = verbalizes understanding N/R = needs review N/A = not applicable * * Differences between complex carbohydrates a simple carbohydrates, role of fiber in diet: R , gradually increase on fiber sources of foods * Importance of hydration as fiber intake increases: R * Differences between types of fats and role in diet (mono on saturated fat fatty acids, saturated fatty acids, trans fats): R * Healthy plate method concept: R * Physical activity: Benefits a precaution: R Patient Instructions: Continue working on balancing meals following healthy plate method Include oatmeal at least twice a week Keep hydrated by having water/low sugar beverages with meals keep physically active gaol 150 min/wk Coding Level of Care Code Nutr Indiv Subseq (06113) Diagnoses Diverticulosis K57.90 Time Spent (min) 20
== END 2023-02-03 11:21 | disposition home or self-care (01) ==
PROVIDERS: PCP Internal Medicine; Visit Provider Dietitian, Registered
DX: K57.90 Diverticulosis of intestine, part unspecified, without perforation or abscess without bleeding (principal)

== ENCOUNTER → 2023-02-03 10:38 | Outpatient (BNVA) | payer OTHER, MEDICAID, SELFPAY | PROVIDERS: PCP Internal Medicine; Visit Provider Dietitian, Registered | DX: K57.90 Diverticulosis of intestine, part unspecified, without perforation or abscess without bleeding (principal); E11.9 Type 2 diabetes mellitus without complications; Z71.3 Dietary counseling and surveillance | CPT/HCPCS: 97803 ==

== ENCOUNTER 2023-05-26 08:39 | Outpatient (AMB) | payer OTHER, MEDICAID, SELFPAY ==
--- NOTE | 2023-05-26 08:49 | A.OFFVIS_ITS ---
Intake VS Expanded 05/26/23 08:50 Height 5 ft Weight 152 lb BMI 29.7 Intake Visit Reasons: diverticulitis/pre-DM/LVM Allergies Sulfa (Sulfonamide Antibiotics) [SULFA(SULFONAMIDE ANTIBIOTICS)] Allergy (Severe, Verified 12/02/22 09:45) THROAT CLOSES vancomycin [VANCOMYCIN] Allergy (Severe, Verified 12/02/22 09:45) FLUSH, REDNESS, ITCHING HPI Nutrition Presentation Details Pt presents for MNT f/u for PRe DM with diverticulosis Pt reports keeping physically as able, using stairs more often, has a dog and looking forward to walking dog and going for longer walks in warmer weather. Pt reports choosing a variety of foods; trying diff vegetables and fruits f.uids: 32 oz of water per day, has 1-2 c of tea or juice diluted with water reports taking MVI dairy: milk/cheese/yogurt , at least 2 servings/d fried foods 1 -2 x/m fish 0nce/wk denies constipation /diarrhea Report monitoring BG in the fasting state and BG ranging from 97-102 mg/dl Most Recent Diabetes Results: Creatinine 0.98 mg/dL (0.5-1.4) 12/02/22 Blood Urea Nitrogen 14 mg/dL (9-16) 12/02/22 Sodium 140 mmol/L (135-145) 12/02/22 Potassium 4.6 mmol/L (3.3-5.1) 12/02/22 Chloride 108 mmol/L (96-108) 12/02/22 Carbon Dioxide 27 mmol/L (22-29) 12/02/22 Calcium 9.7 mg/dL (8.4-10.2) 12/02/22 AST 16 U/L (5-31) 12/02/22 ALT 12 U/L (0-31) 12/02/22 Total Protein 8.0 g/dL (6.5-8.0) 12/02/22 Albumin 4.2 g/dL (3.5-5.0) 12/02/22 [facility] Medical History GERD (gastroesophageal reflux disease) Surgical History Hx of excision of mass History of esophagogastroduodenoscopy (EGD) Hx of colonoscopy History of tubal ligation Family History Father No problems noted. Mother No problems noted. Social History Alcohol intake: never Patient Tobacco Use Status: Never used Tobacco Assessment & Plan Assessment & Plan (1) Diverticulosis: Comment: and pre DM Code(s): K57.90 - Diverticulosis of intestine, part unspecified, without perforation or abscess without bleeding Plan: wt: 70 kg Est kcal needs as per MSJ: 1600 (40% carb, 30% protein/fat) Est fluid needs as per 30 ml/d: 2100 Est prot per day as per 1 g/kg bw: 70 Recommend fiber intake : 8-10 g per day and gradually increase to 25-28 g per day for women and 35-38 g for men or as tolerated Recommend sodium intake per day : less than 2000 mg Educated patient on: ( R = reviewed V = verbalizes understanding N/R = needs review N/A = not applicable * * Differences between complex carbohydrates a simple carbohydrates, role of fiber in diet: R , V gradually increase on fiber sources of foods * Importance of hydration as fiber intake increases: R, V * Differences between types of fats and role in diet (mono on saturated fat fatty acids, saturated fatty acids, trans fats): R , V * Healthy plate method concept: R . V * Physical activity: Benefits a precaution: R , V Patient Instructions: Continue following healthy plate method Keep hydrated by having water with meals Continue working on reducing empty calorie foods (sweets/pastries and similar) Engage in physical activity as able - goal 150 minutes per week Work on 5-6 lbs less by next f/u Coding Level of Care Code Nutr Indiv Subseq (75529) Diagnoses Diverticulosis K57.90 Time Spent (min) 20
[2023-05-26 08:50] VITALS: BMI 29.7
== END 2023-05-26 09:08 | disposition home or self-care (01) ==
PROVIDERS: PCP Internal Medicine; Visit Provider Dietitian, Registered
DX: K57.90 Diverticulosis of intestine, part unspecified, without perforation or abscess without bleeding (principal)

== ENCOUNTER → 2023-05-26 08:39 | Outpatient (BNVA) | payer OTHER, MEDICAID, SELFPAY | PROVIDERS: PCP Internal Medicine; Visit Provider Dietitian, Registered | DX: K57.90 Diverticulosis of intestine, part unspecified, without perforation or abscess without bleeding (principal) | CPT/HCPCS: 97803 ==

== ENCOUNTER 2023-07-16 09:43 | Outpatient (REF) | payer OTHER, SELFPAY ==
--- NOTE | ~2023-07-16 | XR_ITS ---
EXAMINATION: XR ABDOMEN KUB CLINICAL INDICATION: Patient states pain in lower abdomen, across entire abdomen. COMPARISON: CT abdomen and pelvis of 12/02/2022. TECHNIQUE: 2 AP views of the abdomen. FINDINGS: Szusvodp-in-tuldi amount of stool in the colon. Nonobstructive bowel gas pattern. Mild S-shaped thoracolumbar scoliosis with multilevel degenerative changes. Pelvic calcifications are likely vascular. Tiny calculus overlying lower pole of left kidney likely correlates with the 3 mm left lower pole calculus identified on CT scan of 12/02/2022. Visualization of the bilateral kidneys is limited due to overlying bowel. XR/XR KUB IMPRESSION: Tiny calculus overlying lower pole of left kidney likely correlates with the 3 mm left lower pole calculus identified on CT scan of 12/02/2022. Visualization of the bilateral kidneys is limited due to overlying bowel.
== END 2023-07-16 09:44 | disposition home or self-care (01) ==
LOC: HO.XRAY 09:43
PROVIDERS: PCP Internal Medicine; Visit Provider Internal Medicine
DX: R10.30 Lower abdominal pain, unspecified (principal); R14.0 Abdominal distension (gaseous)
CPT/HCPCS: 74018; 81001; 87086

== ENCOUNTER 2023-07-16 10:40 | Outpatient (REF) | payer OTHER, SELFPAY | END 2023-07-16 10:41 | disposition home or self-care (01) | LOC: HO.HHCL 10:40 | PROVIDERS: Visit Provider Internal Medicine | DX: Z13.89 Encounter for screening for other disorder (principal) | CPT/HCPCS: 81001; 87086 ==

== ENCOUNTER 2023-07-28 08:42 | Outpatient (REF) | payer OTHER, SELFPAY ==
[2023-07-28 12:16] LABS: Alanine Aminotransferase 17 U/L (0-31); Albumin Level 4.2 g/dL (3.5-5.0); Alkaline Phosphatase 78 U/L (39-117); Aspartate Amino Transferase 17 U/L (5-31); Bilirubin Direct 0.1 mg/dL (0.0-0.5); Bilirubin Total 0.4 mg/dL (0.0-1.0); Cholesterol 207 mg/dL (<200); HDL Cholesterol 50 mg/dL (>40); LDL Cholesterol Calculated 128 mg/dL (<100); Total Protein 7.9 g/dL (6.5-8.0); Triglycerides 147 mg/dL (<150)
[2023-07-28 12:19] LABS: TSH reflex Free T4 2.67 uIU/mL (0.32-4.0)
== END 2023-07-28 08:43 | disposition home or self-care (01) ==
LOC: HO.HHCLNP 08:42
PROVIDERS: Visit Provider Internal Medicine
DX: I10 Essential (primary) hypertension (principal); R10.30 Lower abdominal pain, unspecified; R79.89 Other specified abnormal findings of blood chemistry
CPT/HCPCS: 36415; 80061; 80076; 84443

== ENCOUNTER 2023-12-05 20:56 | Observation (INO) | payer OTHER, SELFPAY ==
--- NOTE | 2023-12-05 | ECG_ITS ---
Test Reason : CHEST PAIN Blood Pressure : / mmHG Vent. Rate : 076 BPM Atrial Rate : 076 BPM P-R Int : 138 ms QRS Dur : 084 ms QT Int : 380 ms P-R-T Axes : 052 029 062 degrees QTc Int : 427 ms Normal sinus rhythm Normal ECG When compared with ECG of 16-OCT-2019 10:23, No significant change was found Referred By: Generic ED Physician Electronically Signed By:RENALDO BRUNER
--- NOTE | ~2023-12-05 | XR_ITS ---
EXAMINATION: XR CHEST CLINICAL INFORMATION: Chest pain. Palpitations. COMPARISON: Chest radiograph dated 12/14/2018. TECHNIQUE: Frontal view of the chest was obtained. FINDINGS: The lungs are clear. The cardiomediastinal silhouette is normal in size. There is no pleural effusion or pneumothorax. No acute osseous abnormality. XR/XR chest 1V IMPRESSION: No acute cardiopulmonary findings. Electronically signed by: Bacilio You MD 12/06/2023 07:05 AM EDT
[2023-12-05 21:05] VITALS: BP 147/59; PULSE 78; RESP 18; TEMP 36.4; O2SAT 97; BMI 27.1
--- NOTE | 2023-12-05 21:08 | MHC.EDTECH ---
Patient ekg taken and was read by Provider .
--- NOTE | 2023-12-05 21:40 | MHC.EDTECH ---
Patient blood drawn and sent to lab .
[2023-12-05 21:41] LABS: MANUAL DIFF FLAG NO
[2023-12-05 21:42] LABS: Basophils Percent Auto 0.4 % (0-2); Eosinophils Absolute Auto 0.1 X10*3/uL (0.0-0.4); Eosinophils Percent Auto 2.7 % (0-4); Hematocrit 39.9 % (37.0-47.0); Hemoglobin 13.3 g/dl (12.0-16.0); Imm Gran Abs Auto 0.01 X10*3/uL (0.00-0.03); Imm Gran Pct Auto 0.2 % (0.0-0.4); Lymphocytes Absolute Auto 1.4 X10*3/uL (1.2-4.9); Mean Corpuscular HGB Conc 33.3 g/dl (31.0-35.0); Mean Corpuscular Hemoglobin 28.9 pg (27.0-33.0); Mean Corpuscular Volume 86.7 fL (80.0-98.0); Mean Platelet Volume 10.3 fL (9.4-12.3); Monocytes Absolute Auto 0.3 X10*3/uL (0.1-1.2); Monocytes Percent Auto 6.4 % (2-11); Neutrophils Absolute Auto 2.7 x10*3/uL (2.0-8.3); Neutrophils Percent Auto 60.3 % (45-73); Platelet Count 196 X10*3/uL (160-400); Red Cell Distribution Width 13.1 % (11.0-16.0); White Blood Count 4.5 X10*3/uL (4.8-10.8)
[2023-12-05 21:59] LABS: Alanine Aminotransferase 16 U/L (0-31); Albumin Level 4.3 g/dL (3.5-5.0); Alkaline Phosphatase 119 U/L (39-117); Anion Gap 12 (12-20); Aspartate Amino Transferase 17 U/L (5-31); Bilirubin Direct < 0.2 mg/dL (0.0-0.5); Bilirubin Total 0.2 mg/dL (0.0-1.0); Blood Urea Nitrogen 21 mg/dL (9-16); Calcium 9.7 mg/dL (8.4-10.2); Carbon Dioxide 27 mmol/L (22-29); Chloride 106 mmol/L (96-108); Creatinine Clr Calc Pharmacy 56.6; Estimated Glomerular Filt Rate > 60; Glucose Random 162 mg/dL (60-115); Lipase 29 U/L (8-78); Sodium 141 mmol/L (135-145); Total Protein 8.2 g/dL (6.5-8.0)
[2023-12-05 22:06] LABS: Troponin-I High Sensitivity 2.9 ng/L (<3.5-17.0)
[2023-12-05 23:40] VITALS: BP 127/44; PULSE 58; RESP 16; TEMP 36.3; O2SAT 97
[2023-12-06] VITALS (9 sets, daily range): BP systolic 123–134; BP diastolic 51–77; PULSE 57–64; RESP 14–18; TEMP 36.2–36.9; O2SAT 96–98
[2023-12-06 01:47] LABS: Troponin-I High Sensitivity 47.2 ng/L (<3.5-17.0)
--- NOTE | 2023-12-06 01:57 | ED.ARRPALP ---
HPI - Arrhythmia/Palpitations General Chief Complaint: Arrhythmia/Palpitations Stated Complaint: Chest Pain Time Seen by Provider: 12/06/23 01:56 Source: patient Mode of arrival: ambulatory Limitations: no limitations History of Present Illness ED Provider: Dr. Beth HPI narrative: Patient states she is a prediabetic and has had hypertension but is not on any medication. Patient states that tonight she had an episode of palpitations that lasted greater than 30 minutes followed by chest pressure that went into her back. She has not had any symptoms like that before. Onset (ago): hour(s) Related Data Home Medications ?Medication ?Instructions ?Recorded ?Confirmed famotidine 20 mg tablet 20 mg PO DAILY 05/29/22 07/30/22 Previous Rx's ?Medication ?Instructions ?Recorded amoxicillin 875 mg-potassium 1 tab PO Q8H 7 days #21 tabs 12/02/22 clavulanate 125 mg tablet ketorolac 10 mg tablet 10 mg PO TID PRN pain 5 days #15 12/02/22 tabs morphine 15 mg immediate release 15 mg PO Q8H PRN pain, severe 3 12/02/22 tablet days #9 tabs Allergies Allergy/AdvReac Type Severity Reaction Status Date / Time Sulfa (Sulfonamide Allergy Severe THROAT Verified 12/05/23 21:07 Antibiotics) CLOSES [SULFA(SULFONAMIDE ANTIBIOTICS)] vancomycin [VANCOMYCIN] Allergy Severe FLUSH, Verified 12/05/23 21:07 REDNESS, ITCHING Review of Systems Review of Systems: Yes all other systems are reviewed and are negative Neurologic: Denies Sensory deficit (Neuro) PMFSH Past Medical History Medical History GERD (gastroesophageal reflux disease) Surgical History Hx of excision of mass History of esophagogastroduodenoscopy (EGD) Hx of colonoscopy History of tubal ligation Family History Family History Father No problems noted. Mother No problems noted. Social History Social History Alcohol intake: current Alcohol intake frequency: holidays/special occasions only Alcohol type: wine Patient Tobacco Use Status: Never used Tobacco Smoked in Last 30 Days: No Use of substances other than those prescribed or required for medical reasons: No Advance Directives: No Advance Directives Information Provided: Yes Do you have a plan to hurt others: No Plan Nutrition Risks: No Nutritional Risk Physical Exam Vital Signs: Vital Signs: Last Vital Signs Temp 98.4 F 12/06/23 06:13 Pulse 64 12/06/23 06:13 Resp 18 12/06/23 06:13 BP 128/57 L 12/06/23 06:13 Pulse Ox 98 12/06/23 06:13 O2 Del Method Room Air 12/06/23 06:13 BMI result Body Mass Index 27.1 Const: General: healthy appearing Nutritional Appearance: average body habitus Orientation/consciousness: oriented to person and patient oriented x3 Limitations: no limitations HEENT: Head: Yes normal to inspection Ears: external ears normal General nose exam: Normal external nose present Mouth: Normal oral and palatal mucosa present and oropharynx normal Throat: Yes posterior oropharynx normal Eyes: General: appearance normal, both eyes and all related structures Neck: Other: supple Neck: Yes normal visual inspection Chest: Chest palpation & inspection: normal inspection of the chest Resp: Auscultation: clear to auscultation bilaterally Cardio: Jugular venous distension: no JVD Rate: regular rate Rhythm: regular rhythm Heart sounds: S1 normal heart sound present and S2 normal heart sound present GI: Inspection: Yes normal to inspection Palpation (GI): Soft to palpation, nontender and No hepatosplenomegaly present Auscultation: normal bowel sounds : General: Yes no CVA tenderness Back/Spine/Pelvis: Back: no CVA tenderness Skin: General skin exam: no rashes or lesions noted Neuro: General: oriented to person and patient oriented x3 Cranial nerves: Yes CN's II-XII intact bilaterally Motor exam (neuro): 5/5 motor strength present throughout Sensory Exam: No Sensory deficit (Neuro) Extrem: General: Yes normal to inspection Psych: Appearance: grossly normal Course Reevaluation(s) Reevaluation #1: patient had an episode of chest heaviness after she had her palpitations, upon arrival patient was normal. Serial EKGs normal however patient has bumped her troponin will admit Time: 03:15 Reevaluation #2: I spent 40 minutes of critical care, with interventions, assessments, speaking to patient, consultants, and family. Time: 03:15 Medications Administered Discontinued Medications Generic Name Dose Route Start Last Admin Trade Name Tae PRN Reason Stop Dose Admin Aspirin 325 mg 12/06/23 02:08 12/06/23 02:15 Aspirin Enteric Coated 325 Mg Tablet.Dr GORDON 12/06/23 02:09 325 mg ONCE ONE Administration Nitroglycerin 1 inch 12/06/23 02:08 12/06/23 02:17 Nitroglycerin 2 % Oint 1 Gm Packet TRANSDERMA 12/06/23 02:09 1 inch ONCE ONE Administration Medical Decision Making Differential Diagnosis Differential Diagnoses: The differential diagnosis associated with the presentation includes (arrhythmia, cardiac ischemia, nstemi) Admission/Observation Consideration of admission/observation: Escalation of care including admission/observation considered (upon arrival patient considered for admission) Consult Healthcare Provider Management of the patient was discussed with: Hospitalist Lab Data 12/06/23 05:38 12/06/23 05:38 Labs: Lab Results 12/05/23 12/06/23 Range/Units 21:37 01:23 WBC 4.5 L (4.8-10.8) X10*3/uL RBC 4.60 (4.20-5.50) X10*6/uL Hgb 13.3 (12.0-16.0) g/dl Hct 39.9 (37.0-47.0) % MCV 86.7 (80.0-98.0) fL MCH 28.9 (27.0-33.0) pg MCHC 33.3 (31.0-35.0) g/dl RDW 13.1 (11.0-16.0) % Plt Count 196 (160-400) X10*3/uL MPV 10.3 (9.4-12.3) fL Immature Gran % (Auto) 0.2 (0.0-0.4) % Neut % (Auto) 60.3 (45-73) % Lymph % (Auto) 30.0 (20-40) % [place] % (Auto) 6.4 (2-11) % Eos % (Auto) 2.7 (0-4) % Baso % (Auto) 0.4 (0-2) % Lymph # (Auto) 1.4 (1.2-4.9) X10*3/uL [place] # (Auto) 0.3 (0.1-1.2) X10*3/uL Eos # (Auto) 0.1 (0.0-0.4) X10*3/uL Baso # (Auto) 0.0 (0.0-0.2) X10*3/uL Abs Immat Gran (auto) 0.01 (0.00-0.03) X10*3/uL Absolute Neuts (auto) 2.7 (2.0-8.3) x10*3/uL Absolute Nucleated RBC 0.000 (0.0-0.012) X10*3/uL Nucleated RBC % (auto) 0.0 (0.0-0.2) /100WBC Sodium 141 (135-145) mmol/L Potassium 4.0 (3.3-5.1) mmol/L Chloride 106 (96-108) mmol/L Carbon Dioxide 27 (22-29) mmol/L Anion Gap 12 (12-20) BUN 21 H (9-16) mg/dL Creatinine 0.90 (0.5-1.4) mg/dL Estim Creat Clear Calc 56.6 Estimated GFR > 60 Random Glucose 162 H (60-115) mg/dL Calcium 9.7 (8.4-10.2) mg/dL Total Bilirubin 0.2 (0.0-1.0) mg/dL Direct Bilirubin < 0.2 (0.0-0.5) mg/dL AST 17 (5-31) U/L ALT 16 (0-31) U/L Alkaline Phosphatase 119 H (39-117) U/L Troponin I High Sens 2.9 47.2 H D (<3.5-17.0) ng/L Total Protein 8.2 H (6.5-8.0) g/dL Albumin 4.3 (3.5-5.0) g/dL Lipase 29 (8-78) U/L TSH 5.64 H (0.32-4.0) uIU/mL Independent Interpretation I performed an independent interpretation of an: EKG (sinus 60, no st or twave changes) Independent Historian Clinical information obtained from an independent historian. History obtained from or confirmed by: Spouse Discharge Plan Discharge Clinical Impression: Palpitations Chest pain Qualifiers: Chest pain type: unspecified Qualified Code(s): R07.9 - Chest pain, unspecified Patient Disposition: Admitted As Inpatient
--- NOTE | 2023-12-06 02:09 | ECG_ITS ---
Test Reason : ELEVATED TROP Blood Pressure : / mmHG Vent. Rate : 057 BPM Atrial Rate : 057 BPM P-R Int : 134 ms QRS Dur : 084 ms QT Int : 416 ms P-R-T Axes : 058 043 042 degrees QTc Int : [address] elevation now present in Lateral leads ST elevation now present in Inferior leads Borderline ECG When compared with ECG of 05-DEC-2023 20:53, ST elevation now present in Lateral leads ST elevation now present in Inferior leads Referred By: Bill Beth Electronically Signed By:RENALDO BRUNER
[2023-12-06] MEDS: Aspirin Enteric Coated 325 MG TABLET.DR PO (02:15)
[2023-12-06] MEDS: Nitroglycerin 2 % Oint 1 GM Packet 1 INCH TRANSDERMA (02:17)
--- NOTE | 2023-12-06 02:28 | PC.NURSE ---
Pt A&Ox3, reports 5/10 substernal CP, no radiation but reports pain to posterior upper back. Pt reports feeling rapid HR for like 30 mins with SOB earlier on SHAMPOO TECHNICIAN. Pt reports she has had similar episodes but have not lasted as long as today episode. 2nd trop obtained, Dr. Beth made aware of results and at bedside. Meds given per MAY.
--- NOTE | 2023-12-06 04:31 | MHC.EDTECH ---
Patient ambulated to the bathroom with a steady gait,rounds,vitals,and belongings list completed,call paiz in reach
--- NOTE | 2023-12-06 04:42 | PM.IMHP ---
History of Present Illness Date of Service: 12/06/23 Attending physician on admission: Kalpesh Fan Chief Complaint: Chest pain, palpitations Heather Ku is a 68 years old woman with no significant past medical history presents to the emergency department after she experienced an event of palpitations associated with retrosternal chest pressure radiating to the back last night at 7 pm while she was watching TV. She also experienced some shortness of breath. An hour before her symptoms she drank a cup of coffee. She mentioned that she has had similar episodes previously but now as long as the one she had today. She denied any associated headache, dizziness, nausea, vomiting or diaphoresis. Fever or chills no reported. Denied tobacco smoking, alcohol abuse or illicit drug use. In the ED, she was found to have normal vital signs. She stated that when she got to the emergency department her symptoms subsided spontaneously. Blood workup showed WBC of 4.5, hemoglobin is 13.3 and platelets 196. There are no electrolyte imbalances. Creatinine 0.90 and BUN 21. Random glucose is 162. Troponin increased from 2.9 to 47.2. ECG showed sinus bradycardia of 57 bpm and early repolarization changes. ED tx: Aspirin 325 mg p.o., nitroglycerin ointment 1 in. Review of Systems Review of Systems: All 12 systems were reviewed and normal except as noted in HPI. [facility] Medical History GERD (gastroesophageal reflux disease) Family History Father No problems noted. Mother No problems noted. Surgical History Hx of excision of mass History of esophagogastroduodenoscopy (EGD) Hx of colonoscopy History of tubal ligation Social History Alcohol intake: current Alcohol intake frequency: holidays/special occasions only Alcohol type: wine Patient Tobacco Use Status: Never used Tobacco Smoked in Last 30 Days: No Use of substances other than those prescribed or required for medical reasons: No Advance Directives: No Advance Directives Information Provided: Yes Do you have a plan to hurt others: No Plan Meds Allergies Allergy/AdvReac Type Severity Reaction Status Date / Time Sulfa (Sulfonamide Allergy Severe THROAT Verified 12/05/23 21:07 Antibiotics) CLOSES [SULFA(SULFONAMIDE ANTIBIOTICS)] vancomycin [VANCOMYCIN] Allergy Severe FLUSH, Verified 12/05/23 21:07 REDNESS, ITCHING Active Medications: Current Medications Acetaminophen (Acetaminophen 325 Mg Tablet) 975 mg PO Q6H PRN PRN Reason: Pain, Mild (Pain Scale 1-3), fever or headache Sodium Chloride (0.9 % Sodium Chloride Flush 3 Ml Syringe) 3 ml IVFLUSH QSHIFT [facility] Home Medications ?Medication ?Instructions ?Recorded ?Confirmed ?Last Taken ?Type famotidine 20 mg tablet 20 mg PO DAILY 05/29/22 07/30/22 Unknown History Physical Exam Vital Signs and Narrative: Vital Signs: Last Vital Signs Temp 97.8 F 12/06/23 04:20 Pulse 60 12/06/23 04:20 Resp 18 12/06/23 04:20 BP 134/62 12/06/23 04:20 Pulse Ox 97 12/06/23 04:20 O2 Del Method Room Air 12/06/23 04:20 BMI result Body Mass Index 27.1 Constitutional - Awake and Alert, No apparent distress HEENT - PERRL, EOMI Heart - S1S2, RRR Lungs - Normal lung expansion, Normal respiratory effort, No respiratory distress, CTA bilaterally Gastrointestinal - NT / ND; +BS; No rebound or guarding Extremities - no calf tenderness bilaterally, no swelling Musculoskeletal - Normal inspection, normal ROM Skin - Warm/Dry Neurological - Alert & oriented x3. No focal weaknesses. Normal speech. Psychological - Appropriate affect Results Labs 12/05/23 21:37 12/05/23 21:37 Labs: Laboratory Results - last 24 hr 12/05/23 12/06/23 21:37 01:23 MCV 86.7 MCH 28.9 MCHC 33.3 RDW 13.1 Plt Count 196 MPV 10.3 Immature Gran % (Auto) 0.2 Neut % (Auto) 60.3 Lymph % (Auto) 30.0 [place] % (Auto) 6.4 Eos % (Auto) 2.7 Baso % (Auto) 0.4 Lymph # (Auto) 1.4 [place] # (Auto) 0.3 Eos # (Auto) 0.1 Baso # (Auto) 0.0 Abs Immat Gran (auto) 0.01 Absolute Neuts (auto) 2.7 Absolute Nucleated RBC 0.000 Nucleated RBC % (auto) 0.0 Anion Gap 12 Estim Creat Clear Calc 56.6 Estimated GFR > 60 Random Glucose 162 H Calcium 9.7 Total Bilirubin 0.2 Direct Bilirubin < 0.2 AST 17 ALT 16 Alkaline Phosphatase 119 H Troponin I High Sens 2.9 47.2 H D Total Protein 8.2 H Albumin 4.3 Lipase 29 Assessment and Plan (1) Chest pain: Qualifiers: Chest pain type: unspecified Qualified Code(s): R07.9 - Chest pain, unspecified Status: Acute (2) Palpitations: Status: Acute (3) Elevated troponin: Status: Acute Plan Heather Ku is 68 y/o woman presents with: Palpitations associated with chest pain; spontaneously resolved. Observation under hospitalist service. Telemetry. No caffeine for now. Check CXR, TSH, lipid panel and A1c. Recheck troponin. Obtain echocardiogram. Continue aspirin 81 mg PO daily. Cardiology consult. Elevated troponin. Likely demand ischemia (likely unidentified tachycardia). Quality Stroke Does the patient have a stroke diagnosis?: No VTE Prior VTE?: No VTE Risk Level:: Medical - moderate - high VTE Device Contraindication: Treatment Not Indicated VTE Drug Contraindication: Treatment Not Indicated
[2023-12-06 05:21] LABS: Thyroid Stimulating Hormone 5.64 uIU/mL (0.32-4.0)
[2023-12-06 05:43] LABS: MANUAL DIFF FLAG NO
[2023-12-06 05:45] LABS: Basophils Percent Auto 0.5 % (0-2); Eosinophils Absolute Auto 0.1 X10*3/uL (0.0-0.4); Eosinophils Percent Auto 2.6 % (0-4); Hematocrit 36.2 % (37.0-47.0); Imm Gran Abs Auto 0.01 X10*3/uL (0.00-0.03); Imm Gran Pct Auto 0.3 % (0.0-0.4); Lymphocytes Absolute Auto 1.2 X10*3/uL (1.2-4.9); Lymphocytes Percent Auto 32.1 % (20-40); Mean Corpuscular HGB Conc 33.1 g/dl (31.0-35.0); Mean Corpuscular Hemoglobin 28.6 pg (27.0-33.0); Mean Corpuscular Volume 86.4 fL (80.0-98.0); Mean Platelet Volume 10.2 fL (9.4-12.3); Monocytes Absolute Auto 0.4 X10*3/uL (0.1-1.2); Monocytes Percent Auto 11.2 % (2-11); Neutrophils Percent Auto 53.3 % (45-73); Platelet Count 177 X10*3/uL (160-400); Red Blood Count 4.19 X10*6/uL (4.20-5.50); White Blood Count 3.8 X10*3/uL (4.8-10.8)
[2023-12-06 06:04] LABS: Anion Gap 12 (12-20); Blood Urea Nitrogen 17 mg/dL (9-16); Calcium 9.3 mg/dL (8.4-10.2); Carbon Dioxide 26 mmol/L (22-29); Chloride 108 mmol/L (96-108); Creatinine Clr Calc Pharmacy 54.2; Estimated Glomerular Filt Rate 59; Glucose Random 113 mg/dL (60-115); Magnesium 2.2 mg/dL (1.6-2.6); Potassium 3.7 mmol/L (3.3-5.1); Sodium 142 mmol/L (135-145)
--- NOTE | 2023-12-06 07:00 | CA_ITS ---
Transthoracic Echocardiogram Patient (Last, First, Middle): Heather Mayo, Gender: Female Date of : 1955 Age: 68 Procedure Date: 12/06/2023 Procedure Type: Transthoracic Echocardiogram Location: [facility] Height: 154.94 cm Weight: 69.4 kg BSA: 1.69 m2 Heart Rate: bpm BP: 128 / 57 mmHg Wind Tunnel Technician: Referring MD: Kalpesh Fan MD Mold Carpenter: Srinivasa Pires MD Symptoms: Palpitations, chest pain Study Quality: Excellent ECG Rhythm: Sinus Conclusions: - Essentially normal study Findings Left Ventricle Normal left ventricular size, thickness, and systolic function. The visually estimated ejection fraction is between 60-65%. Spectral Doppler is indicative of a normal filling pattern. Peak GLS is -20.7%, within normal limits. Right Ventricle Normal right ventricular cavity size and systolic function. Atria Both atria are normal in size. There is lipomatous hypertrophy of the interatrial septum. There is no evidence of interatrial shunt. Aortic Valve Normal aortic valve structure and function. There is no aortic valve stenosis. There is no aortic valve regurgitation. Mitral Valve Normal mitral valve structure and function. There is trace mitral valve regurgitation. There is no mitral valve stenosis. Pulmonic Valve The pulmonic valve is likely normal. Tricuspid Valve Normal tricuspid valve structure. There is trace tricuspid valve regurgitation. The right ventricular systolic pressure is normal. The right ventricular systolic pressure is 27 mmHg. Normal right atrial pressure. There is no evidence of pulmonary hypertension. Great Vessels All visible segments of the aorta are normal in size. The pulmonary artery was not well visualized. Venous The inferior vena cava is normal in size and collapses greater than 50% with inspiration. Pericardium/Pleural There is no evidence of pericardial effusion. Prior Study Comparison No significant change compared to prior study dated: 12/08/2019. Measurements 2D Linear Measurements IVSd: 1.11 0.6-0.9/0.6-1.0 cm LVIDd: 3.87 3.9-5.3/4.2-5.9 cm LVIDd Index: 2.29 2.4-3.2/2.2-3.1 cm/m2 LVIDs: 2.76 2.0-3.6 cm LVPWd: 1.04 0.7-1.1 cm Ao Root: 2.90 2.1-3.5 cm LA Diam: 3.30 2.7-3.8/3.0-4.0 cm LAIDs Index: 1.95 1.5-2.3 cm/m2 LV Mass: 166.61 67-162/88-224 g LV Mass Index: 98.59 43-95/49-115 g/m2 LVOT Diam: 2.10 3.0+(-)1.3 cm Mitral Valve MV Pk E: 0.75 MV PK A: 0.63 MV Decel Time: 160.00 E/A: 1.20 E'Lateral: 11.30 E'Medial: 7.51 E/E' Med: 9.90 E/E' Lat: 6.60 PHT: 47.00 MVA PHT: 4.68 Decel [place]: 4.65 Aortic Valve AoV Pk Roni: 1.49 AoV Pk Grad: 9.00 LVOT LVOT Pk Roni: 0.84 LVOT Mn Roni: 0.52 LVOT VTI: 0.22 LVOT Pk Grad: 3.00 LVOT Mn Grad: 1.00 LVOT Diam: 2.10 LVOT Area: 3.46 Diastolic Function MV Pk E: 0.75 MV Pk A: 0.63 E/A: 1.20 E'Medial: 7.51 E/E' Med: 9.90 E' Laterial: 11.30 E/E' Lat: 6.60 Right Ventricle TAPSE (mm): 26.00 TVS' Roni: 12.00 Tricuspid Valve TR Pk Roni: 2.43 TR Pk Grad: 24.00 RA Press: 3.00 RVSP: 27.00 Great Vessels Aorta Ao Root-2D: 2.90 2.0-3.7 cm Ao Asc: 3.10 2.1-3.4 cm Pulmonary Valve PV Pk Roni: 0.94 Peak PV Grad: 4.00 Updated in Other Vendor System with Status of Final Srinivasa Pires MD electronically signed on 12/06/2023 12:51:33 PM with status of Final
[2023-12-06 09:01] LABS: Free T4 (Free Thyroxine) 0.87 ng/dL (0.71-1.85)
--- NOTE | 2023-12-06 09:39 | PHA.MEDREC ---
Addendum entered by Michelle Wright RPh 12/06/23 11:04: CHECKED BY [facility] Original Note: Pharmacy Consult ? Medication Reconciliation Pharmacy has completed the medication reconciliation. Sterile Processing Technician services utilized.
[2023-12-06] MEDS: 0.9 % Sodium Chloride Flush 3 ML SYRINGE IVFLUSH (10:19)
[2023-12-06] MEDS: Aspirin Enteric Coated 81 MG TABLET.DR PO (10:19)
[2023-12-06 12:12] LABS: Troponin-I High Sensitivity 21.8 ng/L (<3.5-17.0)
--- NOTE | 2023-12-06 12:39 | PM.CNCAR ---
History of Present Illness History of Present Illness Date of Service: 12/06/23 Requesting physician: Alena Torres Consult reason: troponin elevation and other (Palpitations) Chief complaint: Chest Pain, palpitations Narrative: I was consulted to see Heather in cardiology consultation today for elevated troponins and palpitation with chest tightness. History was obtained with help of baby attendant at bedside. Patient is extremely pleasant 68 year female with no significant past medical history lives with the and is quite functional and active at home. She said over the last few months she has been having symptoms of palpitations where she has these episodes that last for short period time. Yesterday she had 1 episode while watching TV which lasted for a long period time associated with chest tightness and inability to breathe. She would therefore decided to come to the emergency room. By the time she came to the emergency room symptoms were already subsiding. On presentation to ED her EKG was within normal limits. Initial troponin was negative subsequent troponins up to 47 and 3rd troponin this morning is down to 21. She has remained chest tightness free since morning. No overnight palpitations. She says she has never had any cardiac issues in the past. Review of Systems Constitutional: Constitutional: Reports no additional constitutional complaints Eyes: Eyes: Reports no additional eye complaints Cardiovascular: Cardiovascular: Reports chest pain at rest, Denies syncope, Denies leg edema, Denies lightheadedness, Reports palpitations and Reports dyspnea Respiratory: Respiratory: Reports no additional respiratory complaints and Reports dyspnea Gastrointestinal: Gastrointestinal: Reports no additional gastrointestinal complaints Genitourinary: Genitourinary: Reports no additional female genitourinary complaints Musculoskeletal: Musculoskeletal: Reports no additional musculoskeletal complaints Neurologic: Reports system reviewed and no additional complaints, except as documented and Denies syncope Psychiatric: Psychiatric: Reports no additional psychiatric complaints Endocrine: Endocrine: Reports no additional endocrine complaints and Reports palpitations PMFSH Past Medical History Medical History GERD (gastroesophageal reflux disease) Family History Family History Father No problems noted. Mother No problems noted. Surgical History Surgical History Hx of excision of mass History of esophagogastroduodenoscopy (EGD) Hx of colonoscopy History of tubal ligation Social History Social History Alcohol intake: current Alcohol intake frequency: holidays/special occasions only Alcohol type: wine Patient Tobacco Use Status: Never used Tobacco Meds Allergies Allergy/AdvReac Type Severity Reaction Status Date / Time Sulfa (Sulfonamide Allergy Severe THROAT Verified 12/05/23 21:07 Antibiotics) CLOSES [SULFA(SULFONAMIDE ANTIBIOTICS)] vancomycin [VANCOMYCIN] Allergy Severe FLUSH, Verified 12/05/23 21:07 REDNESS, ITCHING Active Medications: Current Medications Acetaminophen (Acetaminophen 325 Mg Tablet) 975 mg PO Q6H PRN PRN Reason: Pain, Mild (Pain Scale 1-3), fever or headache Aspirin (Aspirin Enteric Coated 81 Mg Tablet.) 81 mg PO DAILY [facility] Last Admin: 12/06/23 10:19 Dose: 81 mg Sodium Chloride (0.9 % Sodium Chloride Flush 3 Ml Syringe) 3 ml IVFLUSH QSHIFT [facility] Last Admin: 12/06/23 10:19 Dose: 3 ml Home Medications ?Medication ?Instructions ?Recorded ?Confirmed ?Last Taken ?Type famotidine 20 mg tablet 20 mg PO DAILY PRN Heartburn 05/29/22 12/06/23 1 Week Ago History ~11/29/23 Physical Exam Vital Signs: Vital Signs: Last Vital Signs Temp 97.4 F 12/06/23 11:41 Pulse 58 12/06/23 11:41 Resp 18 12/06/23 11:19 BP 128/61 12/06/23 11:41 Pulse Ox 96 12/06/23 11:41 O2 Del Method Room Air 12/06/23 11:19 BMI result Body Mass Index 27.1 Const: General: cooperative, comfortable, no acute distress, well developed, alert, awake and Physically active Nutritional Appearance: average body habitus and well nourished Orientation/consciousness: patient oriented x3 Limitations: no limitations HEENT: Head: Yes normocephalic and Yes atraumatic Neck: Neck: Yes trachea midline, Yes supple and Yes no JVD Resp: Effort & Inspection: normal respiratory effort Auscultation: clear to auscultation bilaterally Cardio: Jugular venous distension: no JVD Palpation: normal PMI Rate: regular rate Rhythm: regular rhythm Heart sounds: S1 normal heart sound present, S2 normal heart sound present, no click, no gallops, no murmurs and no rubs GI: Auscultation: normal bowel sounds Skin: General skin exam: no rashes or lesions noted Neuro: General: patient oriented x3 and no focal motor deficits Extrem: General: Yes no clubbing, cyanosis or edema Psych: Appearance: grossly normal Objective Labs and Meds 12/06/23 05:38 12/06/23 05:38 Lab results: Laboratory Results - last 24 hr 12/05/23 12/06/23 12/06/23 21:37 01:23 05:38 WBC 4.5 L 3.8 L RBC 4.60 4.19 L Hgb 13.3 12.0 Hct 39.9 36.2 L MCV 86.7 86.4 MCH 28.9 28.6 MCHC 33.3 33.1 RDW 13.1 13.0 Plt Count 196 177 MPV 10.3 10.2 Immature Gran % (Auto) 0.2 0.3 Neut % (Auto) 60.3 53.3 Lymph % (Auto) 30.0 32.1 [place] % (Auto) 6.4 11.2 H Eos % (Auto) 2.7 2.6 Baso % (Auto) 0.4 0.5 Lymph # (Auto) 1.4 1.2 [place] # (Auto) 0.3 0.4 Eos # (Auto) 0.1 0.1 Baso # (Auto) 0.0 0.0 Abs Immat Gran (auto) 0.01 0.01 Absolute Neuts (auto) 2.7 2.0 Absolute Nucleated RBC 0.000 0.000 Nucleated RBC % (auto) 0.0 0.0 Sodium 141 142 Potassium 4.0 3.7 Chloride 106 108 Carbon Dioxide 27 26 Anion Gap 12 12 BUN 21 H 17 H Creatinine 0.90 0.94 Estim Creat Clear Calc 56.6 54.2 Estimated GFR > 60 59 Random Glucose 162 H 113 Calcium 9.7 9.3 Magnesium 2.2 Total Bilirubin 0.2 Direct Bilirubin < 0.2 AST 17 ALT 16 Alkaline Phosphatase 119 H Troponin I High Sens 2.9 47.2 H D Total Protein 8.2 H Albumin 4.3 Lipase 29 TSH 5.64 H Free T4 0.87 12/06/23 11:04 WBC RBC Hgb Hct MCV MCH MCHC RDW Plt Count MPV Immature Gran % (Auto) Neut % (Auto) Lymph % (Auto) [place] % (Auto) Eos % (Auto) Baso % (Auto) Lymph # (Auto) [place] # (Auto) Eos # (Auto) Baso # (Auto) Abs Immat Gran (auto) Absolute Neuts (auto) Absolute Nucleated RBC Nucleated RBC % (auto) Sodium Potassium Chloride Carbon Dioxide Anion Gap BUN Creatinine Estim Creat Clear Calc Estimated GFR Random Glucose Calcium Magnesium Total Bilirubin Direct Bilirubin AST ALT Alkaline Phosphatase Troponin I High Sens 21.8 H D Total Protein Albumin Lipase TSH Free T4 Imaging Radiologist's impression: Impressions Chest X-Ray 12/06/23 05:00 IMPRESSION: No acute cardiopulmonary findings. Electronically signed by: Bacilio You MD 12/06/2023 07:05 AM EDT RP Assessment and Plan (1) Elevated troponin: Status: Acute Elevated troponin with rise and fall consistent with myocardial injury is appearing to be secondary to her rapid heart rate. Etiology of these rapid heart rate unclear, possibilities include SVT and/or atrial fibrillation. This needs to be worked up. Given highly symptomatic nature of her arrhythmia will start on Toprol-XL 50 mg daily. Also given her myocardial injury need to rule out obstructive CAD. Meanwhile will start her on aspirin as well as statins. 40 mg of atorvastatin. Outpatient exercise myocardial perfusion imaging as well as event monitor will be pursued. Management was discussed with her. We discussed about stress mitigation strategies. Advised to avoid stimulants. Treatment based on the finding of her arrhythmia. Will follow up in the clinic after above-mentioned test. Thank you for allowing me to partake in his care Procedures Date of Service Date of Service: 12/06/23
--- NOTE | 2023-12-06 13:02 | PM.DS ---
DS: Providers Provider Date of Service: 12/06/23 Date of admission: 12/06/23 04:37 Date of discharge: 12/06/23 Primary care physician: Unknown Physician Consults: 12/06/23 04:40 Consult to Cardiology Routine Consulting Provider: [facility] Reason for consultation: Chest pain, palpitations Has provider been notified: Yes Attending physician on discharge: Cole Ruffin Discharging clinician: Alena Torres DS: Diagnosis Discharge Diagnosis (1) Elevated troponin: Status: Acute DS: Summary Hospital Course Hospital Course: From H&P on the day of admission Heather Ku is a 68 years old woman with no significant past medical history presents to the emergency department after she experienced an event of palpitations associated with retrosternal chest pressure radiating to the back last night at 7 pm while she was watching TV. She also experienced some shortness of breath. An hour before her symptoms she drank a cup of coffee. She mentioned that she has had similar episodes previously but now as long as the one she had today. She denied any associated headache, dizziness, nausea, vomiting or diaphoresis. Fever or chills no reported. Denied tobacco smoking, alcohol abuse or illicit drug use. In the ED, she was found to have normal vital signs. She stated that when she got to the emergency department her symptoms subsided spontaneously. Blood workup showed WBC of 4.5, hemoglobin is 13.3 and platelets 196. There are no electrolyte imbalances. Creatinine 0.90 and BUN 21. Random glucose is 162. Troponin increased from 2.9 to 47.2. ECG showed sinus bradycardia of 57 bpm and early repolarization changes. ED tx: Aspirin 325 mg p.o., nitroglycerin ointment 1 in Palpitations associated with chest pain spontaneously resolved CXR negative, TSH slightly elevated 5.64, free t4 normal cardiac enzymes remained flat. echocardiogram done without wall motion abnormality. seen by cardiology, Elevated troponin likely due to rapid heart rate. Etiology of these rapid heart rate unclear, possibilities include SVT and/or atrial fibrillation. Will need further outpatient work up to rule out obstructive CAD. Plan for outpatient exercise myocardial perfusion imaging as well as event monitor. We will start aspirin, statin, low-dose beta-judith as per Cardiology recommendation. Time Attestation Discharge Coordination Time (in mins): 35 Quality: Safe Use of Opioids Does Pt have an Active Cancer Diagnosis on the Problem List?: No Quality: Stroke Does the patient have a stroke diagnosis?: No Physical Exam Vital Signs: Vital Signs: Last Vital Signs Temp 97.4 F 12/06/23 11:41 Pulse 58 12/06/23 11:41 Resp 18 12/06/23 11:19 BP 128/61 12/06/23 11:41 Pulse Ox 96 12/06/23 11:41 O2 Del Method Room Air 12/06/23 11:19 BMI result Body Mass Index 27.1 Const: General: cooperative, comfortable, no acute distress, alert and awake Nutritional Appearance: average body habitus Orientation/consciousness: patient oriented x3 Resp: Effort & Inspection: normal respiratory effort, able to speak in complete sentences, no respiratory distress and no use of accessory muscles Cardio: Rate: regular rate GI: Inspection: No distended Palpation (GI): Soft to palpation and nontender Neuro: General: patient oriented x3, moves all extremities and CN's II-XI intact bilaterally DS: Data Data Completed and Pending Labs on day of discharge: Laboratory Results - last 24 hr 12/05/23 12/06/23 12/06/23 21:37 01:23 05:38 WBC 4.5 L 3.8 L RBC 4.60 4.19 L Hgb 13.3 12.0 Hct 39.9 36.2 L MCV 86.7 86.4 MCH 28.9 28.6 MCHC 33.3 33.1 RDW 13.1 13.0 Plt Count 196 177 MPV 10.3 10.2 Immature Gran % (Auto) 0.2 0.3 Neut % (Auto) 60.3 53.3 Lymph % (Auto) 30.0 32.1 [place] % (Auto) 6.4 11.2 H Eos % (Auto) 2.7 2.6 Baso % (Auto) 0.4 0.5 Lymph # (Auto) 1.4 1.2 [place] # (Auto) 0.3 0.4 Eos # (Auto) 0.1 0.1 Baso # (Auto) 0.0 0.0 Abs Immat Gran (auto) 0.01 0.01 Absolute Neuts (auto) 2.7 2.0 Absolute Nucleated RBC 0.000 0.000 Nucleated RBC % (auto) 0.0 0.0 Sodium 141 142 Potassium 4.0 3.7 Chloride 106 108 Carbon Dioxide 27 26 Anion Gap 12 12 BUN 21 H 17 H Creatinine 0.90 0.94 Estim Creat Clear Calc 56.6 54.2 Estimated GFR > 60 59 Random Glucose 162 H 113 Calcium 9.7 9.3 Magnesium 2.2 Total Bilirubin 0.2 Direct Bilirubin < 0.2 AST 17 ALT 16 Alkaline Phosphatase 119 H Troponin I High Sens 2.9 47.2 H D Total Protein 8.2 H Albumin 4.3 Lipase 29 TSH 5.64 H Free T4 0.87 12/06/23 11:04 WBC RBC Hgb Hct MCV MCH MCHC RDW Plt Count MPV Immature Gran % (Auto) Neut % (Auto) Lymph % (Auto) [place] % (Auto) Eos % (Auto) Baso % (Auto) Lymph # (Auto) [place] # (Auto) Eos # (Auto) Baso # (Auto) Abs Immat Gran (auto) Absolute Neuts (auto) Absolute Nucleated RBC Nucleated RBC % (auto) Sodium Potassium Chloride Carbon Dioxide Anion Gap BUN Creatinine Estim Creat Clear Calc Estimated GFR Random Glucose Calcium Magnesium Total Bilirubin Direct Bilirubin AST ALT Alkaline Phosphatase Troponin I High Sens 21.8 H D Total Protein Albumin Lipase TSH Free T4 Discharge Plan Discharge Anticipated Discharge Date/Time: 12/06/23 13:10 Patient Disposition: Home, Self-Care Discharge Diagnosis: elevated cardiac enzymes chest pain palpitations Referrals: Srinivasa Pires MD [Physician] - 1 Week Physician,Osito J [Primary Care Provider] - 1 Week Discharge Medications: New metoprolol succinate 25 mg Tablet Extended Release 24 Hr 25 mg PO DAILY 90 Days Qty: 90 0RF Protocol: Hold for SBP/HR < HOLD for SBP < : 90 HOLD for HR < : 60 aspirin 81 mg Tablet,Delayed Release (Dr/Ec) 81 mg PO DAILY 90 Days Qty: 90 0RF atorvastatin 40 mg tablet 40 mg PO BEDTIME 90 Days Qty: 90 0RF Continued famotidine 20 mg tablet 20 mg PO DAILY PRN (Reason: Heartburn) Discharge Orders: Discharge Order (Routine); Ordered 12/06/23 Ordered By: Alena Torres Activity on Discharge: As tolerated Stand Alone Forms: Patient Portal Discharge page Print Language: Chinese Care Plan Goals: see below Health Concerns: Palpitations/chest pain Plan of Treatment: You have been started on new medications to support your heart including aspirin, atorvastatin, metoprolol The cause of your symptoms could be due to elevated heart rate intermittently. You will need outpatient follow-up with a candy forming machine operator for further investigation including possible stress test and cardiac rehab nurse. Call to schedule follow-up appointment with your PCP Assessment: see discharge summary
[2023-12-06] MEDS: Metoprolol Succinate ER 25 MG TAB.ER.24H PO (14:03)
--- NOTE | 2023-12-06 14:46 | MHC.CM.PN ---
CM MET WITH PT WITH A AIR D[employer] PT LIVES WITH HER AND IS INDEPENDENT SHE HAS NO DME AND NO SERVICES PT DECLINES TO COMPLETE A HCP SHE IS MOVING TO [place] IN [place]EM[place] PCP: [facility] NOTICE DELIVERED PT WILL DC HOME TODAY WITH NO SERVICES VIA PRIVATE TRANSPORT
== END 2023-12-06 14:34 | disposition home or self-care (01) ==
LOC: HO.ED 12-06 03:19 → HO.EDOVER 12-06 04:46 → HO.IMC 12-06 07:39
PROVIDERS: Admitting Provider Internal Medicine; Emergency Provider Emergency Medicine; Visit Provider Physician Assistant Medical
DX: R07.9 Chest pain, unspecified (principal); R00.2 Palpitations; R79.89 Other specified abnormal findings of blood chemistry; R06.02 Shortness of breath; K21.9 Gastro-esophageal reflux disease without esophagitis; Z79.899 Other long term (current) drug therapy
CPT/HCPCS: 36415; 71045; 80048; 80076; 83690; 83735; 84439; 84443; 84484; 85025; 93005; 93306; 99222; 99285

== ENCOUNTER → 2023-12-06 04:37 | Outpatient (BNV) | payer OTHER, SELFPAY | PROVIDERS: Admitting Provider Internal Medicine; Emergency Provider Emergency Medicine; Visit Provider Internal Medicine | DX: R07.9 Chest pain, unspecified (principal); R00.2 Palpitations; R79.89 Other specified abnormal findings of blood chemistry | CPT/HCPCS: 99234; 99499 ==

== ENCOUNTER → 2023-12-06 04:37 | Outpatient (BNV) | payer OTHER, SELFPAY | PROVIDERS: Admitting Provider Internal Medicine; Emergency Provider Emergency Medicine; Visit Provider Internal Medicine Cardiovascular Disease | DX: R07.9 Chest pain, unspecified (principal); R00.2 Palpitations; R79.89 Other specified abnormal findings of blood chemistry | CPT/HCPCS: 93306; 93356; 99222 ==

== ENCOUNTER 2023-12-24 12:53 | Outpatient (REF) | payer OTHER, SELFPAY ==
--- NOTE | ~2023-12-24 | MM_ITS ---
EXAMINATION: MM SCREENING DIGITAL BREAST TOMOSYNTHESIS, BILATERAL CLINICAL INFORMATION: Screening. Asymptomatic. COMPARISON: Mammography: Comparison is made with available priors TECHNIQUE: Digital breast mammography with tomosynthesis is performed in both the craniocaudal and mediolateral oblique views along with computer-aided detection (CAD). FINDINGS: There are scattered areas of fibroglandular density (ACR BI-RADS breast composition Category b). There are no significant masses, abnormal calcifications, or other abnormalities. MM/MM tomosynthesis screening BI IMPRESSION: No mammographic evidence of malignancy. ASSESSMENT: BI-RADS BI-RADS 1 - Negative RECOMMENDATION: Routine annual mammography screening. 1 year F/U This examination should not preclude the clinical evaluation of a suspicious palpable abnormality. This patient's information was entered into a reminder system with a target due date for their next mammogram. Electronically signed by: Karen Clifton DO 01/05/2024 05:58 PM EDT
== END 2023-12-24 12:54 | disposition home or self-care (01) ==
LOC: HO.MAMMO 12:53
PROVIDERS: PCP Internal Medicine; Visit Provider Internal Medicine
DX: Z12.31 Encounter for screening mammogram for malignant neoplasm of breast (principal)
CPT/HCPCS: 77063; 77067

== ENCOUNTER → 2023-12-24 13:15 | Outpatient (BNV) | payer OTHER, SELFPAY | PROVIDERS: PCP Internal Medicine; Visit Provider Internal Medicine | DX: Z12.31 Encounter for screening mammogram for malignant neoplasm of breast (principal) | CPT/HCPCS: 77063; 77067 ==